=== PATIENT | female | born 1960 | race Caucasian/White ===

== ENCOUNTER 2016-08-21 06:43 | Inpatient (IN) | payer MEDICARE, MEDICAID ==
[~2016-08-21] VITALS: Ht 160 cm; Wt 65.9 kg
[2016-08-21] VITALS (11 sets, daily range): BP systolic 141–170; BP diastolic 67–86; PULSE 90–99; RESP 16–20; TEMP 97–99.1; O2SAT 92–97
[~2016-08-21 06:43] MED LIST: AMLO2.5T PO; CALC500T21 PO; DIVA500 PO; FE T325T PO; FLUP10 PO; FOLI1TAB PO; GABA400C5 PO; GEMF600T PO; GUAI600 PO; HYDR50CA PO; LEVEMIR SQ; LEVO50TA4 PO; LORA-475 PO; METF500 PO; OMEP20TA39 PO; TAB-TAB PO; TRIH5TAB2 PO
[2016-08-21] MEDS ORDERED: SODIUM CHLORIDE 0.9% FLUSH 10 ML FLUSH IVF PRN ×2 (07:00→07:30)
[2016-08-21 07:10] LABS: BASOPHIL % 0.2 % (0.0-2.0); EOSINOPHIL # 0.1 TH/MM3 (0-0.4); EOSINOPHIL % 0.5 % (0.0-4.0); HEMATOCRIT 40.7 % (35.0-46.0); LYMPH % 12.3 % (9.0-44.0); LYMPHOCYTE # 2.7 TH/MM3 (1.0-4.8); MEAN CORPUSCULAR HEMOGLOBIN 29.8 PG (27.0-34.0); MEAN CORPUSCULAR HGB CONC 34.3 % (32.0-36.0); MONO % 14.9 % (0.0-8.0); NEUT % 72.1 % (16.0-70.0); PLATELET COUNT 305 TH/MM3 (150-450); RED BLOOD COUNT 4.68 MIL/MM3 (4.00-5.30); RED CELL DISTRIBUTION WIDTH 14.2 % (11.6-17.2); WHITE BLOOD COUNT 22.2 TH/MM3 (4.0-11.0)
[2016-08-21 07:19] LABS: APTT (PATIENT) 29.3 SEC (24.3-30.1); HEMO FLAGS AUTO DIFF; PROTHROMBIN TIME - PATIENT 11.6 SEC (9.8-11.6)
[2016-08-21] MEDS ORDERED: SODIUM CHLOR 0.9% 1000 ML INJ 1,000 ML IV SCH (07:19)
[2016-08-21] MEDS ORDERED: LEVO100T5 PO (07:26)
[2016-08-21] MEDS ORDERED: ACET325T PO (07:26)
[2016-08-21] MEDS ORDERED: GABA800T PO (07:26)
[2016-08-21] MEDS ORDERED: FERR325T PO (07:26)
[2016-08-21] MEDS ORDERED: OMEP20TA PO (07:26)
[2016-08-21] MEDS ORDERED: LANTINJ SQ (07:26)
[2016-08-21] MEDS ORDERED: AMLO2.5T PO (07:26)
[2016-08-21] MEDS ORDERED: TRIH5TAB2 PO (07:26)
[2016-08-21] MEDS ORDERED: FOLI1TAB4 PO (07:26)
[2016-08-21] MEDS ORDERED: GLUC1000 PO (07:26)
[2016-08-21] MEDS ORDERED: HYDR50CA PO (07:26)
[2016-08-21] MEDS ORDERED: GLIP1TAB49 PO (07:26)
[2016-08-21] MEDS ORDERED: GEMF600T PO (07:26)
[2016-08-21] MEDS ORDERED: DIVA500T3 PO (07:26)
[2016-08-21] MEDS ORDERED: CALC1TAB42 PO (07:26)
[2016-08-21] MEDS ORDERED: MELO-1 PO (07:26)
[2016-08-21] MEDS ORDERED: MULT-135 PO (07:26)
[2016-08-21] MEDS ORDERED: LORA1TAB12 PO (07:26)
[2016-08-21] MEDS ORDERED: FLUP10TA PO (07:26)
[2016-08-21 07:27] LABS: ANION GAP 8 MEQ/L (5-15); AST (GOT) 13 U/L (15-37); BICARBONATE 27.5 MEQ/L (21.0-32.0); BLOOD UREA NITROGEN 12 MG/DL (7-18); CHLORIDE 106 MEQ/L (98-107); GLOMERULAR FILTRATION RATE 51 ML/MIN (>89); POTASSIUM 3.6 MEQ/L (3.5-5.1); SODIUM (NA) 141 MEQ/L (136-145)
--- NOTE | 2016-08-21 07:27 | PD ---
HPI Chief Complaint: Altered Mental Status Time Seen by Provider: 07:11 Travel History International Travel<30 days: No Contact w/Intl Traveler<30days: No Traveled to known affect area: No History of Present Illness HPI 56 y/o female presents with altered mental status since yesterday from an outside facility. This history was obtained from staff who discussed with the EMS team. Patient can tell me her name but is very drowsy and cannot give me significant history. PFSH Past Medical History Narrative Medical Per chart Bipolar Disorder: Yes Diminished Hearing: No (JUAN JOSÉ) Psychiatric: Yes Schizophrenia: Yes Tetanus Vaccination: Unknown Influenza Vaccination: No Past Surgical History Surgical History: Unable to Obtain Social History Narrative Social History Per chart Alcohol Use: No Tobacco Use: Yes Substance Use: Yes Allergies-Medications (Allergen,Severity, Reaction): Coded Allergies: Cogentin (Verified Allergy, Unknown, 08/21/16) Haldol (Verified Allergy, Unknown, 08/21/16) Uncoded Allergies: Butrophenones (Allergy, Unknown, 10/09/15) Reported Meds & Prescriptions Reported Meds & Active Scripts Active Reported Trihexyphenidyl (Trihexyphenidyl HCl) 5 Mg Tab 5 Mg PO BID Multi Vitamin (Multiple Vitamin) 1 Tab Tab 1 Tab PO DAILY Omeprazole 20 Mg Tab 20 Mg PO DAILY Glucophage (Metformin HCl) 1,000 Mg Tab 1,000 Mg PO BIDPC With a meal Meloxicam 15 Mg Tab 15 Mg PO DAILY Lorazepam 1 Mg Tab 1 Mg PO QID Levothyroxine (Levothyroxine Sodium) 100 Mcg Tab 100 Mcg PO DAILY Lantus Solostar Pen Inj (Insulin Glargine) 300 Unit/3 Ml Pen 15 Units SQ DAILY Hydroxyzine Pamoate 50 Mg Cap 50 Mg PO DAILY Glipizide ER (Glipizide) 5 Mg Eleno 5 Mg PO DAILY Take with breakfast or first main meal of the day. Gemfibrozil 600 Mg Tab 600 Mg PO BIDAC Take 30 minutes prior to breakfast and dinner. Gabapentin 800 Mg Tab 800 Mg PO TID Folate (Folic Acid) 1 Mg Tab 1 Mg PO DAILY Fluphenazine (Fluphenazine HCl) 10 Mg Tab 1 Tab PO TID Ferrous Sulfate 325 Mg Tab 325 Mg PO BID Divalproex ER (Divalproex Sodium) 500 Mg Tab 500 Mg PO QID Calcium 500+D (Calcium Carbonate-Cholecalciferol) 500-200 Mg-Unit Tab 1 Tab PO BID Amlodipine (Amlodipine Besylate) 2.5 Mg Tab 2.5 Mg PO DAILY Acetaminophen 325 Mg Tab 325 Mg PO TID Review of Systems ROS Limitations: Altered Mental Status Physical Exam Exam Limitations: Altered Mental Status Narrative GENERAL: Well-nourished, well-developed patient. SKIN: Warm and dry. HEAD: Normocephalic EYES: No injection or drainage. Pupils are 1 cm bilaterally ENT: No nasal drainage noted. NECK: Supple, trachea midline. CARDIOVASCULAR: Regular rate and rhythm RESPIRATORY: Breath sounds equal bilaterally at apices. No accessory muscle use. GASTROINTESTINAL: Abdomen soft, nondistended. EXTREMITIES: No edema. No calf pain NEUROLOGICAL: Drowsy, moves all extremities, awakens to voice but slow to answer questions Data Data Last Documented VS Vital Signs Date Time Temp Pulse Resp B/P Pulse Ox O2 Delivery O2 Flow Rate FiO2 08/21/16 06:53 18 95 Nasal Cannula 2 08/21/16 06:46 99.1 99 145/69 Orders Complete Blood Count With Diff (08/21/16 06:50) Comprehensive Metabolic Panel (08/21/16 06:50) Creatine Kinase (Cpk) (08/21/16 06:50) Prothrombin Time / Inr (Pt) (08/21/16 06:50) Act Partial Throm Time (Ptt) (08/21/16 06:50) Urinalysis - C+S If Indicated (08/21/16 06:50) Ecg Monitoring (08/21/16 06:50) Iv Access Insert/Monitor (08/21/16 06:50) Oximetry (08/21/16 06:50) Sodium Chloride 0.9% Flush (Ns Flush) (08/21/16 07:00) Drug Screen, Random Urine (08/21/16 06:50) Chest, Single Ap (08/21/16 06:50) Ct Brain W/O Iv Contrast(Rout) (08/21/16 ) Sodium Chloride 0.9% Flush (Ns Flush) (08/21/16 07:30) Sodium Chlor 0.9% 1000 Ml Inj (Ns 1000 M (08/21/16 07:19) Electrocardiogram (08/21/16 07:21) Lactic Acid Sepsis Protocol (08/21/16 07:21) Magnesium (Mg) (08/21/16 07:21) Phosphorus (Po4) (08/21/16 07:21) Blood Culture (08/21/16 07:21) Ammonia (08/21/16 07:21) Influenzae A/B Antigen (08/21/16 07:27) Urine Culture (08/21/16 06:50) Cefepime Inj (Maxipime Inj) (08/21/16 07:50) Alcohol (Ethanol) (08/21/16 07:28) Sodium Chlor 0.9% 1000 Ml Inj (Ns 1000 M (08/21/16 08:30) Admit Order (Ed Use Only) (08/21/16 08:37) Labs Laboratory Tests Test 08/21/16 08/21/16 08/21/16 06:50 07:28 07:40 White Blood Count 22.2 TH/MM3 Red Blood Count 4.68 MIL/MM3 Hemoglobin 14.0 GM/DL Hematocrit 40.7 % Mean Corpuscular Volume 87.0 FL Mean Corpuscular Hemoglobin 29.8 PG Mean Corpuscular Hemoglobin 34.3 % Concent Red Cell Distribution Width 14.2 % Platelet Count 305 TH/MM3 Mean Platelet Volume 7.7 FL Neutrophils (%) (Auto) 72.1 % Lymphocytes (%) (Auto) 12.3 % Monocytes (%) (Auto) 14.9 % Eosinophils (%) (Auto) 0.5 % Basophils (%) (Auto) 0.2 % Neutrophils # (Auto) 16.0 TH/MM3 Lymphocytes # (Auto) 2.7 TH/MM3 Monocytes # (Auto) 3.3 TH/MM3 Eosinophils # (Auto) 0.1 TH/MM3 Basophils # (Auto) 0.0 TH/MM3 CBC Comment AUTO DIFF Differential Total Cells 100 Counted Neutrophils % (Manual) 63 % Band Neutrophils % 11 % Lymphocytes % 12 % Monocytes % 12 % Eosinophils % 1 % Neutrophils # (Manual) 16.4 TH/MM3 Differential Comment FINAL DIFF MANUAL Atypical Lymphocytes % Plasma Cells 1 % Platelet Estimate NORMAL Platelet Morphology Comment NORMAL Red Cell Morphology Comment NORMAL Prothrombin Time 11.6 SEC Prothromb Time International 1.0 RATIO Ratio Activated Partial 29.3 SEC Thromboplast Time Urine Color LIGHT-YELLOW Urine Turbidity HAZY Urine pH 6.0 Urine Specific [place] 1.011 Urine Protein 100 mg/dL Urine Glucose (UA) NEG mg/dL Urine Ketones NEG mg/dL Urine Occult Blood MOD Urine Nitrite POS Urine Bilirubin NEG Urine Urobilinogen LESS THAN 2.0 MG/DL Urine Leukocyte Esterase MOD Urine RBC 6 /hpf Urine WBC 111 /hpf Urine WBC Clumps OCC Urine Squamous Epithelial <1 /hpf Cells Urine Bacteria MANY /hpf Microscopic Urinalysis Comment CATH-CULTURE IND Sodium Level 141 MEQ/L Potassium Level 3.6 MEQ/L Chloride Level 106 MEQ/L Carbon Dioxide Level 27.5 MEQ/L Anion Gap 8 MEQ/L Blood Urea Nitrogen 12 MG/DL Creatinine 1.10 MG/DL Estimat Glomerular Filtration 51 ML/MIN Rate Random Glucose 91 MG/DL Calcium Level 8.3 MG/DL Total Bilirubin 0.2 MG/DL Aspartate Amino Transf 13 U/L (AST/SGOT) Alanine Aminotransferase 17 U/L (ALT/SGPT) Alkaline Phosphatase 58 U/L Total Creatine Kinase 80 U/L Total Protein 5.9 GM/DL Albumin 2.4 GM/DL Lactic Acid Level 1.3 mmol/L Phosphorus Level 4.2 MG/DL Magnesium Level 1.8 MG/DL Ammonia 36 MCMOL/L Ethyl Alcohol Level LESS THAN 3 MG/DL Urine Opiates Screen NEG Urine Barbiturates Screen NEG Urine Amphetamines Screen NEG Urine Benzodiazepines Screen NEG Urine Cocaine Screen NEG Urine Cannabinoids Screen NEG MDM Medical Decision Making Medical Screen Exam Complete: Yes Emergency Medical Condition: Yes Medical Record Reviewed: Yes (past history confirmed) Interpretation(s) CBC & BMP Diagram 08/21/16 06:50 Last 24 hours Impressions Chest X-Ray 08/21/16 0650 Signed Impressions: Service Date/Time: Sunday, August 21, 2016 06:56 - CONCLUSION: Normal examination. Minimal pulmonary vascular prominence in the lung bases. Nishant Wilkins MD Head CT 08/21/16 0000 Signed Impressions: Service Date/Time: Sunday, August 21, 2016 07:26 - CONCLUSION: 1. No acute intracranial abnormality is identified. 2. Mucoperiosteal thickening within the ethmoid and right maxillary sinus. Chan Smith MD ua with uti lactate is normal EKG shows NSR, no ST elevation or depression, and no arrhythmias. No significant T-wave inversions. Differential Diagnosis UTI, hypoglycemia, hyponatremia, sepsis, intracranial Narrative Course Will add on CT brain, alcohol level, ammonia, lactate to initial protocol ordered by prior physician after brief notification of EMS report ed workup with sepsis with uti source, patient has no signs of hypotension, renal failure, DKA or elevated lactate that she is drowsy with past medical history of diabetes at 56 years of age so we will give 1 dose of cefepime and give IV fluid hydration and she will need further care in the hospital to make sure she improves Sepsis Criteria SIRS Criteria (2 or more): Heart rate over 90, WBC > 14869, < 4000 or > 10% bands Sepsis Criteria (SIRS+source): Infect source susp/known Criteria Outcome: Meets sepsis criteria Physician Communication Physician Communication Prior physician gave brief EMS report of patient that she had normal Accu-Chek and was more drowsy at the facility she is staying at resident team agrees to admit Diagnosis Primary Impression: Sepsis Qualified Code: A41.9 - Sepsis, due to unspecified organism Additional Impressions: UTI (urinary tract infection) Qualified Code: N39.0 - Urinary tract infection without hematuria, site unspecified Drowsiness Admitting Information Admitting Physician Requests: Admit Sol Overton MD Aug 21, 2016 07:27
--- NOTE | 2016-08-21 07:27 | RADRPT ---
EXAM DATE/TIME: 08/21/2016 06:56 [facility] COMPARISON: CHEST PA & LAT, October 10, 2015, 17:01. INDICATIONS : Short of breath. Change in mental status MEDICAL HISTORY : None. SURGICAL HISTORY : None. ENCOUNTER: Initial ACUITY: 1 day PAIN SCORE: Non-responsive. LOCATION: Bilateral chest FINDINGS: A single view of the chest demonstrates the lungs to be symmetrically aerated without evidence of mas s, infiltrate or effusion. The cardiomediastinal contours are unremarkable. Osseous structures are intact. CONCLUSION: Normal examination. Minimal pulmonary vascular prominence in the lung bases. Nishant Wilkins MD on August 21, 2016 at 7:25 Board Certified Radiologist. This report was verified electronically.
[2016-08-21 07:30] LABS: ALKALINE PHOSPHATASE 58 U/L (45-117); ALT (GPT) 17 U/L (10-53); TOTAL BILIRUBIN ADULT 0.2 MG/DL (0.2-1.0)
[2016-08-21 07:33] LABS: BACTERIA, URINE MANY /hpf; BLOOD, URINE MOD (NEG); CREATINE KINASE 80 U/L (26-192); GLUCOSE,URINE NEG (NEG); KETONE, URINE NEG (NEG); SQUAMOUS EPITHELIAL CELL URINE <1 /hpf (0-5); URINE COLOR LIGHT-YELLOW (YELLW/STRAW)
[2016-08-21 07:38] LABS: COMMENT (UR) CATH-CULTURE IND; CULTURE IF INDICATED CATH CULTURE IND; NITRITE,URINE POS (NEG)
[2016-08-21] MEDS ORDERED: CEFEPIME INJ 2,000 MG in SODIUM CHLORIDE 0.9% INJ 100 ML IV STA (07:50)
--- NOTE | 2016-08-21 07:50 | RADRPT ---
EXAM DATE/TIME: 08/21/2016 07:26 [facility] COMPARISON: No previous studies available for comparison. INDICATIONS : Altered mental status. RADIATION DOSE: 40.30 CTDIvol (mGy) MEDICAL HISTORY : Cardiovascular disease. Diabetes SURGICAL HISTORY : None. ENCOUNTER: Initial ACUITY: 1 day PAIN SCALE: Non-responsive LOCATION: cranial TECHNIQUE: Multiple contiguous axial images were obtained of the head. Using automated exposure control and adj ustment of the mA and/or kV according to patient size, radiation dose was kept as low as reasonably a chievable to obtain optimal diagnostic quality images. FINDINGS: CEREBRUM: The ventricles are normal. No evidence of midline shift, mass lesion, hemorrhage or acute infarction . No extra-axial fluid collections are seen. POSTERIOR FOSSA: The cerebellum and brainstem demonstrate no acute finding. The 4th ventricle is midline. The cerebe llopontine angle is unremarkable. EXTRACRANIAL: There is periosteal thickening within the right maxillary and ethmoid sinus SKULL: The calvaria is intact. No evidence of skull fracture. CONCLUSION: 1. No acute intracranial abnormality is identified. 2. Mucoperiosteal thickening within the ethmoid and right maxillary sinus. Chan Smith MD on August 21, 2016 at 7:46 Board Certified Radiologist. This report was verified electronically.
[2016-08-21 07:59] LABS: AMPHETAMINE, URINE NEG (NEG); BARBITURATES, URINE NEG (NEG); COCAINE, URINE NEG (NEG)
[2016-08-21 08:13] LABS: BANDS 11 % (0-6); EOSINOPHILS 1 % (0-4); NEUTROPHIL # MANUAL DIFF 16.4 TH/MM3 (1.8-7.7); PLASMA CELLS 1 % (0-0); POLYS (SEG NEUTROPHILS) 63 % (16-70); WBC DIFF SAMPLE 100
[2016-08-21 08:17] LABS: PLATELET ESTIMATE SMEAR NORMAL (NORMAL); PLATELET MORPHOLOGY NORMAL (NORMAL); SCAN/DIFF FINAL DIFF MANUAL
[2016-08-21 08:26] LABS: MAGNESIUM 1.8 MG/DL (1.5-2.5)
[2016-08-21] MEDS ORDERED: SODIUM CHLOR 0.9% 1000 ML INJ 1,000 ML IV ONE (08:30)
[2016-08-21] MEDS: SODIUM CHLOR 0.9% 1000 ML INJ 1,000 ML IV SCH ×2 (09:23→17:49)
--- NOTE | 2016-08-21 09:23 | HHI.HP ---
HPI Service Family Medicine Primary Care Physician Solo Livingston M.D. Admission Diagnosis sepsis, uti Diagnoses: International Travel<30 Days: No Contact w/Intl Traveler<30days: No Known Affected Area: No History of Present Illness History limited due to patient being drowsy and uncooperative on awakening 56 year old with PMH of DM, HTN, schizophrenia presenting for altered mental status. Per EMS and record review, patient having altered mental status since yesterday from an outside facility (her [facility]). She cannot articulate the events of night before. She denies any chest pain, SOB, abdominal pain, cough, fever, wheezing. She seems to be having some active delusions (says she thinks she had a baby yesterday). Unable to obtain further details. (Carlos Hope MD R1) Review of Systems ROS Limitations: Altered Mental Status, Uncooperative Respiratory: DENIES: Shortness of breath Cardiovascular: DENIES: Chest pain Gastrointestinal: COMPLAINS OF: Abdominal pain (Carlos Hope MD R1) Past Family Social History Past Medical History Schizophrenia DM Hypothyroidism HTN ? Polysubstance abuse Past Surgical History Unable to obtain Reported Medications Obtained from [facility] record Reported Meds & Active Scripts Active Reported Trihexyphenidyl (Trihexyphenidyl HCl) 5 Mg Tab 5 Mg PO BID Multi Vitamin (Multiple Vitamin) 1 Tab Tab 1 Tab PO DAILY Omeprazole 20 Mg Tab 20 Mg PO DAILY Glucophage (Metformin HCl) 1,000 Mg Tab 1,000 Mg PO BIDPC With a meal Meloxicam 15 Mg Tab 15 Mg PO DAILY Lorazepam 1 Mg Tab 1 Mg PO QID Levothyroxine (Levothyroxine Sodium) 100 Mcg Tab 100 Mcg PO DAILY Lantus Solostar Pen Inj (Insulin Glargine) 300 Unit/3 Ml Pen 15 Units SQ DAILY Hydroxyzine Pamoate 50 Mg Cap 50 Mg PO DAILY Glipizide ER (Glipizide) 5 Mg Eleno 5 Mg PO DAILY Take with breakfast or first main meal of the day. Gemfibrozil 600 Mg Tab 600 Mg PO BIDAC Take 30 minutes prior to breakfast and dinner. Gabapentin 800 Mg Tab 800 Mg PO TID Folate (Folic Acid) 1 Mg Tab 1 Mg PO DAILY Fluphenazine (Fluphenazine HCl) 10 Mg Tab 1 Tab PO TID Ferrous Sulfate 325 Mg Tab 325 Mg PO BID Divalproex ER (Divalproex Sodium) 500 Mg Tab 500 Mg PO QID Calcium 500+D (Calcium Carbonate-Cholecalciferol) 500-200 Mg-Unit Tab 1 Tab PO BID Amlodipine (Amlodipine Besylate) 2.5 Mg Tab 2.5 Mg PO DAILY Acetaminophen 325 Mg Tab 325 Mg PO TID (Carlos Hope MD R1) Allergies: Coded Allergies: Cogentin (Verified Allergy, Unknown, 08/21/16) Haldol (Verified Allergy, Unknown, 08/21/16) Uncoded Allergies: Butrophenones (Allergy, Unknown, 10/09/15) Active Ordered Medications Current Medications Medications (Trade) Dose Ordered Sig/Leonard Route Start Time Stop Time Status Last Admin (NS 1000 ml Inj) 1,000 ml @ 115 mls/hr Q8H42M IV 08/21/16 09:23 (NS Flush) 2 ml UNSCH PRN IV FLUSH 08/21/16 09:30 (NS Flush) 2 ml BID IV FLUSH 08/21/16 21:00 (Senokot) 17.2 mg Q12H PRN PO 08/21/16 09:30 (Lovenox Inj) 40 mg Q24H SQ 08/21/16 10:00 Naloxone HCl 0.4 mg 0.4 mg UNSCH PRN IV 08/21/16 09:30 (Maxipime Inj/NS Inj) 100 ml @ 200 mls/hr Q12H IV 08/21/16 20:00 (Norvasc) 2.5 mg DAILY PO 08/21/16 09:30 08/21/16 11:52 (Depakote Er) 500 mg QID PO 08/21/16 13:00 (Ferrous Sulfate) 325 mg BID PO 08/21/16 09:30 08/21/16 11:51 (Prolixin) 10 mg TID PO 08/21/16 13:00 (Folate) 1 mg DAILY PO 08/21/16 09:30 08/21/16 11:52 (Neurontin) 800 mg TID PO 08/21/16 13:00 (Lopid) 600 mg BIDAC PO 08/21/16 09:30 08/21/16 11:52 (Vistaril) 50 mg DAILY PO 08/21/16 09:30 08/21/16 11:51 (Synthroid) 100 mcg DAILY@06 PO 08/22/16 06:00 (Ativan) 1 mg QID PO 08/21/16 13:00 (Mobic) 15 mg DAILY PO 08/21/16 09:30 (Theragran) 1 tab DAILY PO 08/21/16 09:30 08/21/16 12:01 (Artane) 5 mg BID PO 08/21/16 09:30 (Oscal-D 250-125) 500 mg BID PO 08/21/16 09:45 08/21/16 11:52 (Protonix) 20 mg DAILY PO 08/21/16 09:45 08/21/16 11:53 (D50w (Vial) Inj) 25 ml UNSCH PRN IV PUSH 08/21/16 09:30 (Glucagon Inj) 1 mg UNSCH PRN OTHER 08/21/16 09:30 (Levemir Inj) 5 units Q12HR SQ 08/21/16 09:30 Family History From prior admission: Patient denies a family history of serious mental illness , substance use disorder or suicide. She had previously told me that there was a relation was an alcoholic but denies this now. Social History On chart review, ? history of poly-substance abuse. Refused questioning about drugs/alcohol. Current smoker. (Carlos Hope MD R1) Physical Exam Vital Signs Vital Signs Date Time Temp Pulse Resp B/P Pulse Ox O2 Delivery O2 Flow Rate FiO2 08/21/16 06:53 18 95 Nasal Cannula 2 08/21/16 06:46 99.1 99 18 145/69 92 Physical Exam Exam limited due to uncooperative patient GEN: [id number] disheveled-appearing adult female in no acute distress HEAD: NC/AT EYES: PERRL. No conjunctival injection or drainage. ENT: MMM, OP without erythema or exudate RESP: Breathing comfortably. CTAB, no crackles or wheezes. CV: Refused ABDOMEN: Refused MSK: Atraumatic, no edema by inspection SKIN: Hypopigmented macular rash back of neck. Check for sacral ulcer by RN showed no abnormality. NEURO: Drowsy, awakens to touch. Refused questioning for orientation. PSYCH: Disheveled. Thought process goal directed. Delusions (says she had a baby yesterday). Unable to assess hallucinations, SI/HI. Laboratory Laboratory Tests Test 08/21/16 08/21/16 08/21/16 06:50 07:28 07:40 White Blood Count 22.2 Red Blood Count 4.68 Hemoglobin 14.0 Hematocrit 40.7 Mean Corpuscular Volume 87.0 Mean Corpuscular Hemoglobin 29.8 Mean Corpuscular Hemoglobin 34.3 Concent Red Cell Distribution Width 14.2 Platelet Count 305 Mean Platelet Volume 7.7 Neutrophils (%) (Auto) 72.1 Lymphocytes (%) (Auto) 12.3 Monocytes (%) (Auto) 14.9 Eosinophils (%) (Auto) 0.5 Basophils (%) (Auto) 0.2 Neutrophils # (Auto) 16.0 Lymphocytes # (Auto) 2.7 Monocytes # (Auto) 3.3 Eosinophils # (Auto) 0.1 Basophils # (Auto) 0.0 CBC Comment AUTO DIFF Differential Total Cells 100 Counted Neutrophils % (Manual) 63 Band Neutrophils % 11 Lymphocytes % 12 Monocytes % 12 Eosinophils % 1 Neutrophils # (Manual) 16.4 Differential Comment FINAL DIFF MANUAL Atypical Lymphocytes Plasma Cells 1 Platelet Estimate NORMAL Platelet Morphology Comment NORMAL Red Cell Morphology Comment NORMAL Prothrombin Time 11.6 Prothromb Time International 1.0 Ratio Activated Partial 29.3 Thromboplast Time Urine Color LIGHT-YELLOW Urine Turbidity HAZY Urine pH 6.0 Urine Specific [place] 1.011 Urine Protein 100 Urine Glucose (UA) NEG Urine Ketones NEG Urine Occult Blood MOD Urine Nitrite POS Urine Bilirubin NEG Urine Urobilinogen LESS THAN 2.0 Urine Leukocyte Esterase MOD Urine RBC 6 Urine WBC 111 Urine WBC Clumps OCC Urine Squamous Epithelial <1 Cells Urine Bacteria MANY Microscopic Urinalysis Comment CATH-CULTURE IND Sodium Level 141 Potassium Level 3.6 Chloride Level 106 Carbon Dioxide Level 27.5 Anion Gap 8 Blood Urea Nitrogen 12 Creatinine 1.10 Estimat Glomerular Filtration 51 Rate Random Glucose 91 Calcium Level 8.3 Total Bilirubin 0.2 Aspartate Amino Transf 13 (AST/SGOT) Alanine Aminotransferase 17 (ALT/SGPT) Alkaline Phosphatase 58 Total Creatine Kinase 80 Total Protein 5.9 Albumin 2.4 Lactic Acid Level 1.3 Phosphorus Level 4.2 Magnesium Level 1.8 Ammonia 36 Ethyl Alcohol Level LESS THAN 3 Urine Opiates Screen NEG Urine Barbiturates Screen NEG Urine Amphetamines Screen NEG Urine Benzodiazepines Screen NEG Urine Cocaine Screen NEG Urine Cannabinoids Screen NEG Date/Time Procedure Status Source Growth 08/21/16 07:43 Influenza Types A,B Antigen (EDEL) - Final Complete Nasal Aspirate NEGATIVE FOR FLU A AND B ANTIGEN.... 08/21/16 07:38 Aerobic Blood Culture Received Blood Peripheral Pending 08/21/16 07:38 Anaerobic Blood Culture Received Blood Peripheral Pending 08/21/16 06:50 Urine Culture Received Urine Catheterized Urine Pending (Carlos Hope MD R1) Result Diagram: 08/21/16 0650 08/21/16 0650 Imaging Last Impressions Chest X-Ray 08/21/16 0650 Signed Impressions: Service Date/Time: Sunday, August 21, 2016 06:56 - CONCLUSION: Normal examination. Minimal pulmonary vascular prominence in the lung bases. Nishant Wilkins MD Head CT 08/21/16 0000 Signed Impressions: Service Date/Time: Sunday, August 21, 2016 07:26 - CONCLUSION: 1. No acute intracranial abnormality is identified. 2. Mucoperiosteal thickening within the ethmoid and right maxillary sinus. Chan Smith MD (Carlos Hope MD R1) Septic Shock Reassessment Lungs: Clear Skin: Warm (Carlos Hope MD R1) Assessment and Plan Assessment and Plan 56 yo female with PMH of schizophrenia, DM, HTN, hypothyroidism presenting with: Code Status Unable to obtain (Carlos Hope MD R1) Attending Attestation Patient seen and examined, and discussed with resident team. I agree with assessment and management as documented and discussed with me. The patient has been seen and examined. The chart and all resident notes have been reviewed. I agree that inpatient care is appropriate and that a two midnight stay is expected for the reasons documented in the resident history and physical. I have discussed this with the resident and certify the resident s order for inpatient admission. Constance العلي is a 56yo lady with schizophrenia, HTN, DM II admitted for altered mental status found to have sepsis from UTI. Pt is altered upon my entrance to room. Pt used bed chi for stooling and then threw bed chi to the ground. She is uncooperative. (Lo Higgins MD) Problem List: (1) Sepsis Status: Acute Plan: Based on tachycardia and WBC, patient meets sepsis criteria. No evidence of hypoperfusion or organ dysfunction to suggest severe sepsis. Maintaining BP. Source likely urinary (see UTI below) UA showing many WBC with casts, possibly indicating pyelonephritis - Cefepime 2 g IV Q12H - F/u urine culture - Patient s/p 2 L bolus in ER - NS at 115 cc/hr - Vitals Q4H - Initial lactic acid wnl, repeat per sepsis protocol (2) UTI (urinary tract infection) Status: Acute Plan: UA showing many WBC and some casts. Likely this is pyelonephritis versus lower UTI. - Cefepime as above - F/u Urine Cx (3) Altered mental status Status: Acute Plan: Based on fluctuating level of consciousness, altered mental state is delirium likely due to UTI - Treat UTI as above - Single troponin to r/o cardiac etiology. If positive will trend. - Telemetry for sepsis; if no events and patient stable, D/C after 24 hours - Patient having delusions and history of schizophrenia, but possibly this could be due to not having taken AM psych meds as well as delirium state - Resume psych meds as below, follow clinically (4) Undifferentiated schizophrenia Status: Chronic Plan: Currently with agitation, active delusions. Questionably responding to internal stimuli; difficult to tell whether uncontrolled schizophrenia versus delirium, but more likely delirium - Continue home Fluphenazine, Depakote, Atarax - Continue trihexyphenidyl for parkinsonian symptoms related to antipsychotics - If agitation persists on giving home meds, consider IM antipsychotic x1 (5) Type 2 diabetes mellitus Status: Chronic Plan: Blood glucose wnl - Levemir 5 units BID - Low-dose SSI - Accu-checks AC&HS - Diabetic diet - Continue home gabapentin (assuming for neuropathy but unclear) (6) Essential hypertension Status: Chronic Plan: BP stable - Continue home amlodipine (7) Hypothyroidism Status: Chronic Plan: - Continue home Synthroid - Check TSH in AM (8) FEN Status: Acute Plan: Fluids: NS at 115 cc/hr Elecs: Monitor and replete as needed Nutrition: Diabetic 2200 ADA cons carb (9) No contraindication to deep vein thrombosis (DVT) prophylaxis Status: Acute Plan: Lovenox 40 mg SQ daily dw Dr. Higgins, Dr. Donald (Carlos Hope MD R1) Physician Certification 2 Midnight Certification Type: Admission for Inpatient Services Order for Inpatient Services The services are ordered in accordance with Medicare regulations or non- Medicare payer requirements, as applicable. In the case of services not specified as inpatient-only, they are appropriately provided as inpatient services in accordance with the 2-midnight benchmark. Estimated LOS (days): 2 days is the estimated time the patient will need to remain in the hospital, assuming treatment plan goals are met and no additional complications. Post-Hospital Plan: [facility] (Carlos Hope MD R1) Problem Qualifiers (1) Sepsis: Qualified Code: A41.9 - Sepsis, due to unspecified organism (2) UTI (urinary tract infection): Qualified Code: N39.0 - Urinary tract infection without hematuria, site unspecified (3) Altered mental status: Qualified Code: R41.0 - Delirium (4) Type 2 diabetes mellitus: Qualified Code: E11.8 - Type 2 diabetes mellitus with complication, with long- term current use of insulin (5) Hypothyroidism: Qualified Code: E03.9 - Hypothyroidism, unspecified type Carlos Hope MD R1 Aug 21, 2016 09:23 Lo Higgins MD Aug 21, 2016 21:41
[2016-08-21] MEDS ORDERED: SODIUM CHLORIDE 0.9% FLUSH 10 ML FLUSH IV FLUSH PRN (09:30)
[2016-08-21] MEDS: INSULIN DETEMIR 100 UNITS/ML VIAL SQ SCH ×2 (09:30→21:00)
[2016-08-21] MEDS ORDERED: SENNOSIDES 8.6 MG TAB PO PRN (09:30)
[2016-08-21] MEDS ORDERED: GLUCAGON 1 MG/ML VIAL OTHER PRN (09:30)
[2016-08-21] MEDS ORDERED: DEXTROSE 50% IN WATER 50 ML VIAL(D50) IV PUSH PRN (09:30)
[2016-08-21] MEDS ORDERED: NALOXONE HCL 0.4 MG/ML AMP IV PRN (09:30)
--- NOTE | 2016-08-21 09:36 | EKG ---
Date Performed: 08/21/2016 Time Performed: 06:47:42 PTAGE: 56 years EKG: Sinus rhythm NORMAL ECG NO PREVIOUS TRACING DOCTOR: Hernandez Segovia Interpretating Date/Time 08/21/2016 09:35:27
[2016-08-21] MEDS: ENOXAPARIN SODIUM 40 MG/0.4 ML SYRINGE SQ SCH (10:00)
[2016-08-21] MEDS: INSULIN ASPART SUPPLEMENTAL SCALE SQ SCH ×3 (11:00→21:00)
[2016-08-21] MEDS: FERROUS SULFATE 325 MG (65 MG ELEMENTAL IRON) TAB PO SCH ×2 (11:51→22:42)
[2016-08-21] MEDS: GEMFIBROZIL 600 MG TAB PO SCH ×2 (11:52→16:50)
[2016-08-21] MEDS: FOLIC ACID 1 MG TAB PO SCH (11:52)
[2016-08-21] MEDS: CALCIUM/VITAMIN D 250 MG/125 U TAB PO SCH ×2 (11:52→22:42)
[2016-08-21] MEDS: amLODIPine BESYLATE 5 MG TAB PO SCH (11:52)
[2016-08-21] MEDS: PANTOPRAZOLE SOD 20 MG DELAYED RELEASE TAB PO SCH (11:53)
[2016-08-21] MEDS: MULTIVITAMIN TAB PO SCH (12:01)
[2016-08-21] MEDS: MELOXICAM 15 MG TAB PO SCH (12:15)
[2016-08-21] MEDS: TRIHEXYPHENIDYL HCL 5 MG TAB PO SCH ×2 (12:15→22:42)
[2016-08-21] MEDS: GABAPENTIN 400 MG CAP PO SCH ×2 (13:51→16:50)
[2016-08-21] MEDS: LORazepam 1 MG TAB PO SCH ×3 (13:51→22:41)
[2016-08-21] MEDS: DIVALPROEX SODIUM E.R. 500 MG TAB PO SCH ×3 (14:42→22:42)
[2016-08-21] MEDS ORDERED: CEFEPIME INJ 2,000 MG in SODIUM CHLORIDE 0.9% INJ 100 ML IV SCH (20:00)
[2016-08-21] MEDS: SODIUM CHLORIDE 0.9% FLUSH 10 ML FLUSH IV FLUSH SCH (21:00)
[2016-08-22] VITALS (8 sets, daily range): BP systolic 149–167; BP diastolic 68–104; PULSE 82–97; RESP 16–20; TEMP 97.3–98.9; O2SAT 88–97
[2016-08-22] MEDS ORDERED: CEFEPIME 1000 MG VIAL IM SCH
[2016-08-22] MEDS: CEFEPIME 1000 MG VIAL IM SCH ×3 (00:37→23:22)
[2016-08-22] MEDS: SODIUM CHLOR 0.9% 1000 ML INJ 1,000 ML IV SCH ×3 (02:47→20:11)
[2016-08-22] MEDS: GEMFIBROZIL 600 MG TAB PO SCH ×2 (05:45→16:24)
[2016-08-22] MEDS: LEVOTHYROXINE SODIUM 100 MCG TAB PO SCH (05:45)
[2016-08-22] MEDS: INSULIN ASPART SUPPLEMENTAL SCALE SQ SCH ×4 (05:45→20:51)
[2016-08-22] MEDS: MULTIVITAMIN TAB PO SCH (08:22)
[2016-08-22] MEDS: FERROUS SULFATE 325 MG (65 MG ELEMENTAL IRON) TAB PO SCH ×2 (08:22→20:50)
[2016-08-22] MEDS: TRIHEXYPHENIDYL HCL 5 MG TAB PO SCH ×2 (08:22→20:50)
[2016-08-22] MEDS: LORazepam 1 MG TAB PO SCH ×4 (08:22→20:50)
[2016-08-22] MEDS: FOLIC ACID 1 MG TAB PO SCH (08:23)
[2016-08-22] MEDS: MELOXICAM 15 MG TAB PO SCH (08:23)
[2016-08-22] MEDS: CALCIUM/VITAMIN D 250 MG/125 U TAB PO SCH ×2 (08:23→20:50)
[2016-08-22] MEDS: amLODIPine BESYLATE 5 MG TAB PO SCH (08:23)
[2016-08-22] MEDS: SODIUM CHLORIDE 0.9% FLUSH 10 ML FLUSH IV FLUSH SCH ×2 (08:23→20:51)
[2016-08-22] MEDS: GABAPENTIN 400 MG CAP PO SCH ×3 (08:23→17:32)
[2016-08-22] MEDS: DIVALPROEX SODIUM E.R. 500 MG TAB PO SCH ×4 (08:23→20:50)
[2016-08-22] MEDS: PANTOPRAZOLE SOD 20 MG DELAYED RELEASE TAB PO SCH (08:23)
[2016-08-22] MEDS: INSULIN DETEMIR 100 UNITS/ML VIAL SQ SCH ×2 (08:25→20:50)
[2016-08-22] MEDS: ENOXAPARIN SODIUM 40 MG/0.4 ML SYRINGE SQ SCH (08:29)
--- NOTE | 2016-08-22 10:07 | HHI.FPPN ---
Subjective Remarks Patient seen and examined. ALANA overnight. Per EMR, there was an episode of desaturation to 88% around 0130 this morning. Patient was placed on 4L via NC; however O2 sats currently stable on room air. Patient is more lucid this morning. Reports multiple episodes of nonbloody diarrhea overnight and this morning. Denies abdominal pain, nausea, or vomiting. (Yulisa Loera MD R3) Objective Vitals Vital Signs Date Time Temp Pulse Resp B/P Pulse Ox O2 Delivery O2 Flow Rate FiO2 08/22/16 08:56 Room Air 21 08/22/16 08:15 98.8 92 18 155/77 94 08/22/16 04:00 97.9 97 20 149/68 97 08/22/16 01:42 Nasal Cannula 4.00 08/22/16 01:33 88 08/22/16 00:16 98.5 92 16 158/73 95 08/21/16 20:00 97.7 90 20 157/77 94 08/21/16 20:00 96 08/21/16 16:00 97.0 94 18 152/73 97 08/21/16 13:00 90 16 161/76 97 Room Air 08/21/16 11:37 93 21 08/21/16 10:00 90 16 170/86 97 Nasal Cannula 2 I/O 08/21/16 08/21/16 08/21/16 08/22/16 08/22/16 08/22/16 07:00 15:00 23:00 07:00 15:00 23:00 Intake Total 360 ml 360 ml Balance 360 ml 360 ml Intake Oral 360 ml 360 ml # Voids 2 3 # Bowel Movements 2 2 (Yulisa Loera MD R3) Result Diagram: 08/21/16 0650 08/21/16 0650 Imaging Chest X-Ray 08/21/16 0650 Signed Impressions: Service Date/Time: Sunday, August 21, 2016 06:56 - CONCLUSION: Normal examination. Minimal pulmonary vascular prominence in the lung bases. Nishant Wilkins MD Head CT 08/21/16 0000 Signed Impressions: Service Date/Time: Sunday, August 21, 2016 07:26 - CONCLUSION: 1. No acute intracranial abnormality is identified. 2. Mucoperiosteal thickening within the ethmoid and right maxillary sinus. Chan Smith MD Objective Remarks GEN: WDWN disheveled-appearing adult female in no acute distress HEAD: NC/AT EYES: No conjunctival injection or drainage. ENT: MMM, OP without erythema or exudate RESP: Breathing comfortably. CTAB, no crackles or wheezes. CV: RRR. No murmurs. ABDOMEN: Soft, non-distended, nontender. Active bowel sounds. Negative Olivas's sign MSK: MAEW. No edema. SKIN: Clear. No lesions or rashes noted. NEURO: Awake and alert. No focal deficits. PSYCH: Disheveled. Thought process goal directed. No evidence of delusions or hallucinations this morning. Angry because she thinks they switched her medications around at the [facility]. (Yulisa Loera MD R3) A/P Assessment and Plan 56 yo female with PMH of schizophrenia, DM, HTN, hypothyroidism presenting with: Discharge Planning Discharge pending clinical improvement and result of urine culture (Yulisa Loera MD R3) Attending Attestation Patient seen, examined and discussed with resident team. I agree with assessment and management as documented and discussed with me. Pt complains of diarrhea as above. No abdominal pain. On exam, mild "discomfort' bilateral CVA. No obvious pain. Negative olivas's sign. Await UCx. Additional diagnosis: Diarrhea: Unclear etiology. Check stool studies. (Lo Higgins MD) Problem List: (1) Sepsis Status: Acute Plan: Based on tachycardia and WBC, patient met sepsis criteria on admission. Lactic acid 1.3 Source likely urinary (see UTI below) UA showing many WBC with casts, possibly indicating pyelonephritis. - Continue Cefepime 2 g IM Q12H - F/u urine and blood cultures. Of note, one culture came back positive for GNR. - Patient s/p 2 L bolus in ER. Continue NS at 115 cc/hr (2) UTI (urinary tract infection) Status: Acute Plan: UA showing many WBC and some casts. Likely this is pyelonephritis versus lower UTI. - Cefepime as above - F/u Urine Cx - Consider renal u/s if renal function worsens (3) Altered mental status Status: Acute Plan: Based on fluctuating level of consciousness, altered mental state is delirium likely due to UTI. Mental status improved compared to admission. - Treat UTI as above - UDS negative. Ethyl alcohol unremarkable. - Ammonia slightly elevated. Will repeat in AM. - Single troponin negative - Discontinue telemetry given no events overnight - Patient has history of schizophrenia. Resume psych meds as below, follow clinically. If psychosis worsen, consider psych consult. (4) Undifferentiated schizophrenia Status: Chronic Plan: Had agitation and active delusions on admission. Questionably responding to internal stimuli; difficult to tell whether uncontrolled schizophrenia versus delirium, but more likely delirium. Mental status improved. - Continue home Fluphenazine, Depakote, Atarax - Continue trihexyphenidyl for parkinsonian symptoms related to antipsychotics - Consider psych consult if symptoms worsen - Depakote level pending. (5) Type 2 diabetes mellitus Status: Chronic Plan: Blood glucose wnl - Levemir 5 units BID - Low-dose SSI - Accu-checks AC&HS - Diabetic diet - Continue home gabapentin (6) Essential hypertension Status: Chronic Plan: BP stable - Continue home amlodipine (7) Hypothyroidism Status: Chronic Plan: - Continue home Synthroid - Check TSH pending (8) FEN Status: Acute Plan: Fluids: NS at 115 cc/hr Elecs: Monitor and replete as needed Nutrition: Diabetic 2200 ADA cons carb (9) No contraindication to deep vein thrombosis (DVT) prophylaxis Status: Acute Plan: Lovenox 40 mg SQ daily s/d/w Dr. Higgins and Dr. Hope (Yulisa Loera MD R3) Problem Qualifiers (1) Sepsis: Qualified Code: A41.9 - Sepsis, due to unspecified organism (2) UTI (urinary tract infection): Qualified Code: N39.0 - Urinary tract infection without hematuria, site unspecified (3) Altered mental status: Qualified Code: R41.0 - Delirium (4) Type 2 diabetes mellitus: Qualified Code: E11.8 - Type 2 diabetes mellitus with complication, with long- term current use of insulin (5) Hypothyroidism: Qualified Code: E03.9 - Hypothyroidism, unspecified type Yulisa Loera MD R3 Aug 22, 2016 10:07 Lo Higgins MD Aug 22, 2016 13:35
[2016-08-22 11:01] LABS: AUTOMATED NEUTROPHIL # 13.3 TH/MM3 (1.8-7.7); BASOPHIL # 0.1 TH/MM3 (0-0.2); BASOPHIL % 0.7 % (0.0-2.0); EOSINOPHIL # 0.1 TH/MM3 (0-0.4); EOSINOPHIL % 0.8 % (0.0-4.0); HEMATOCRIT 36.6 % (35.0-46.0); HEMO FLAGS DIFF FINAL; LYMPH % 15.9 % (9.0-44.0); LYMPHOCYTE # 2.8 TH/MM3 (1.0-4.8); MEAN CELL VOLUME 87.2 FL (80.0-100.0); MEAN CORPUSCULAR HEMOGLOBIN 29.8 PG (27.0-34.0); MEAN CORPUSCULAR HGB CONC 34.1 % (32.0-36.0); MONO % 7.9 % (0.0-8.0); NEUT % 74.7 % (16.0-70.0); PLATELET COUNT 286 TH/MM3 (150-450); RED BLOOD COUNT 4.19 MIL/MM3 (4.00-5.30); WHITE BLOOD COUNT 17.8 TH/MM3 (4.0-11.0)
[2016-08-22 11:39] LABS: BICARBONATE 26.2 MEQ/L (21.0-32.0); MAGNESIUM 1.9 MG/DL (1.5-2.5); POTASSIUM 3.5 MEQ/L (3.5-5.1)
--- NOTE | 2016-08-22 14:22 | EKG ---
Date Performed: 08/21/2016 Time Performed: 08:37:41 PTAGE: 56 years EKG: Sinus rhythm Since previous tracing, no significant change noted NORMAL ECG PREVIOUS TRACING : 08/21/2016 06.47.42 DOCTOR: Asif Avalos Interpretating Date/Time 08/22/2016 14:22:15
[2016-08-23] VITALS (9 sets, daily range): BP systolic 130–181; BP diastolic 74–94; PULSE 72–93; RESP 16–22; TEMP 97.4–98.7; O2SAT 94–98
[2016-08-23] MEDS ORDERED: diphenhydrAMINE HCL 50 MG CAP PO PRN (01:30)
[2016-08-23] MEDS: SODIUM CHLOR 0.9% 1000 ML INJ 1,000 ML IV SCH ×3 (04:46→22:17)
[2016-08-23] MEDS: GEMFIBROZIL 600 MG TAB PO SCH ×2 (05:25→20:12)
[2016-08-23] MEDS: LEVOTHYROXINE SODIUM 100 MCG TAB PO SCH (05:25)
[2016-08-23] MEDS: INSULIN ASPART SUPPLEMENTAL SCALE SQ SCH ×6 (06:06→21:00)
[2016-08-23 07:15] LABS: AUTOMATED NEUTROPHIL # 7.5 TH/MM3 (1.8-7.7); BASOPHIL % 0.3 % (0.0-2.0); EOSINOPHIL # 0.3 TH/MM3 (0-0.4); EOSINOPHIL % 2.9 % (0.0-4.0); HEMATOCRIT 36.4 % (35.0-46.0); HEMO FLAGS DIFF FINAL; LYMPH % 24.3 % (9.0-44.0); LYMPHOCYTE # 2.8 TH/MM3 (1.0-4.8); MEAN CELL VOLUME 85.6 FL (80.0-100.0); MEAN CORPUSCULAR HEMOGLOBIN 30.5 PG (27.0-34.0); MEAN CORPUSCULAR HGB CONC 35.7 % (32.0-36.0); MONO % 8.3 % (0.0-8.0); NEUT % 64.2 % (16.0-70.0); PLATELET COUNT 313 TH/MM3 (150-450); RED BLOOD COUNT 4.25 MIL/MM3 (4.00-5.30); RED CELL DISTRIBUTION WIDTH 13.7 % (11.6-17.2); WHITE BLOOD COUNT 11.6 TH/MM3 (4.0-11.0)
[2016-08-23 07:37] LABS: BICARBONATE 31.6 MEQ/L (21.0-32.0); POTASSIUM 3.7 MEQ/L (3.5-5.1)
[2016-08-23] MEDS: SODIUM CHLORIDE 0.9% FLUSH 10 ML FLUSH IV FLUSH SCH ×2 (09:00→21:00)
--- NOTE | 2016-08-23 10:32 | HHI.FPPN ---
Subjective Remarks Sitting up in chair, anxious, tearful. Per nursing report, security was called because patient was wandering off the floor. She is wanting to leave against medical advise. She refuses a physical examination today. Does not answer my questions and keeps stating she wants to leave. Objective Vitals Vital Signs Date Time Temp Pulse Resp B/P Pulse Ox O2 Delivery O2 Flow Rate FiO2 08/23/16 05:56 130/82 08/23/16 05:09 93 22 172/93 94 08/23/16 00:00 98.7 84 20 151/74 96 08/22/16 23:20 Room Air 08/22/16 20:00 98.9 82 18 167/79 95 08/22/16 16:14 98.4 87 18 159/104 96 08/22/16 12:14 94 21 08/22/16 12:02 97.3 87 20 156/80 95 I/O 08/22/16 08/22/16 08/22/16 08/23/16 08/23/16 08/23/16 07:00 15:00 23:00 07:00 15:00 23:00 Intake Total 360 ml 600 ml 360 ml Balance 360 ml 600 ml 360 ml Intake Oral 360 ml 600 ml 360 ml # Voids 3 2 1 # Bowel Movements 2 1 Result Diagram: 08/23/1640 08/23/1640 Objective Remarks GEN: WDWN disheveled-appearing adult female, anxious and tearful, wants to leave No physical exam performed per the patient's refusal. A/P Assessment and Plan 56 yo female with PMH of schizophrenia, DM, HTN, hypothyroidism presenting with AMS, urinary tract infection and e.coli bacteremia. Discharge Planning Discharge pending negative blood culture, improvement in clinical status, no leukocytosis or fevers for 24 hours at least Problem List: (1) E coli bacteremia Status: Acute Plan: Presented with urinary tract infection and altered mental status, found to have urine culture positive for e.coli and e.coli bacteremia. White count improving, was 22.2 at admission and now 11.6. No fevers. Lactic acid was 1.3. - Receiving Cefepime IM (was refusing IV). - Continue IVF at maintenance. - Monitor for fevers and leukocytosis. - Consult infectious disease. (2) UTI (urinary tract infection) Status: Acute Plan: UA showing many WBC and some casts. Likely this is pyelonephritis versus lower UTI. Also with e.coli bacteremia, likely from urinary tract. Creatinine improving and now normal. - Cefepime IM, switch to IV when she is amenable. - F/u sensitivities of culture, tailor antibiotic coverage accordingly. (3) Hyperammonemia Status: Acute Plan: Ammonia is 64, 36 on admission. Difficult to examine patient but currently with no apparent decreasing consciousness. She is up in a chair and walking around without difficulty. Likely from hypovolemia, infectious process, poor nutrition. Possibly from alcohol use. Valproic acid can also cause elevated ammonia. - Monitor for lethargy/decreased consciousness. - Consider lactulose if continuing to rise or change in consciousness. (4) Undifferentiated schizophrenia Status: Chronic Plan: Had agitation and active delusions on admission. Questionably responding to internal stimuli; difficult to tell whether uncontrolled schizophrenia versus acute delirium. Currently she is attempting to leave the floor and security had to be called. Had extensive discussion with the patient, and she is not able to tell me what we are treating her for in the hospital, why treatment is important, or what will happen if she does not get treated for her condition and chooses to leave. - I will Del Rosario Act the patient as it is my opinion that she lacks insight into the consequences of refusing medical care and is not able to care for herself outside of the hospital. - Consult psychiatry. - Continue home Fluphenazine, Depakote, Atarax - Continue trihexyphenidyl for parkinsonian symptoms related to antipsychotics - Depakote level slightly low. (5) Type 2 diabetes mellitus Status: Chronic Plan: Blood glucose wnl since noon yesterday. - Levemir 5 units BID - Low-dose SSI - Accu-checks AC&HS - Diabetic diet - Continue home gabapentin (6) Essential hypertension Status: Chronic Plan: BP stable - Continue home amlodipine (7) Hypothyroidism Status: Chronic Plan: - Continue home Synthroid - Check TSH pending (8) FEN Status: Acute Plan: Fluids: NS at 115 cc/hr Elecs: Monitor and replete as needed Nutrition: Diabetic 2200 ADA cons carb (9) No contraindication to deep vein thrombosis (DVT) prophylaxis Status: Acute Plan: Lovenox 40 mg SQ daily d/w Dr. Higgins Problem Qualifiers (1) UTI (urinary tract infection): Qualified Code: N39.0 - Urinary tract infection without hematuria, site unspecified (2) Type 2 diabetes mellitus: Qualified Code: E11.8 - Type 2 diabetes mellitus with complication, with long- term current use of insulin (3) Hypothyroidism: Qualified Code: E03.9 - Hypothyroidism, unspecified type Claudio Donald MD R2 Aug 23, 2016 10:32
[2016-08-23] MEDS: MELOXICAM 15 MG TAB PO SCH (11:13)
[2016-08-23] MEDS: TRIHEXYPHENIDYL HCL 5 MG TAB PO SCH ×2 (11:14→21:17)
[2016-08-23] MEDS: DIVALPROEX SODIUM E.R. 500 MG TAB PO SCH ×4 (11:14→21:00)
[2016-08-23] MEDS: CALCIUM/VITAMIN D 250 MG/125 U TAB PO SCH ×2 (11:14→21:18)
[2016-08-23] MEDS: amLODIPine BESYLATE 5 MG TAB PO SCH (11:15)
[2016-08-23] MEDS: PANTOPRAZOLE SOD 20 MG DELAYED RELEASE TAB PO SCH (11:15)
[2016-08-23] MEDS: FERROUS SULFATE 325 MG (65 MG ELEMENTAL IRON) TAB PO SCH ×2 (11:15→21:17)
[2016-08-23] MEDS: GABAPENTIN 400 MG CAP PO SCH ×3 (11:15→20:12)
[2016-08-23] MEDS: LORazepam 1 MG TAB PO SCH ×4 (11:15→20:11)
[2016-08-23] MEDS: FOLIC ACID 1 MG TAB PO SCH (11:15)
[2016-08-23] MEDS: MULTIVITAMIN TAB PO SCH (11:15)
[2016-08-23] MEDS: INSULIN DETEMIR 100 UNITS/ML VIAL SQ SCH ×2 (11:16→21:18)
[2016-08-23] MEDS: ENOXAPARIN SODIUM 40 MG/0.4 ML SYRINGE SQ SCH (11:21)
[2016-08-23] MEDS: CEFEPIME 1000 MG VIAL IM SCH (11:23)
[2016-08-23] MEDS: LACTULOSE SYRUP 20 GM/30 ML CUP PO SCH (11:45)
--- NOTE | 2016-08-23 19:27 | MB ---
cc: SIMRAN HARTMAN MD DATE OF CONSULTATION 08/23/[address] Donald REASON FOR CONSULTATION E-coli UTI and E-coli bacteremia. HISTORY OF PRESENT ILLNESS A 56-year white female who was admitted to the hospital when she presented from an assisted living facility with altered mental status. The patient was unable to give medical history when she presented. Temperature was 99.1 degrees and a white blood cell count was elevated at 22.2 and she also exhibited signs of acute renal failure. The workup included urinalysis which revealed elevated white cell count and urine culture was obtained and it came back with E-coli. Blood cultures were also obtained and one of the bottles came back with E-coli. She was started on antibiotics. The temperatures were normal except for one axillary measured temperature of 98.7 earlier today. The patient was noted to be very drowsy when she presented. Currently she is awake and alert but her speech is somewhat abnormal. The character of her speech is more like a drunken speech. She denies headache. Chest x-ray was unremarkable. Her white blood cell count has steadily improved. She has no other significant complaints. She is concerned that her abdomen is distended. She reports that she had some sort of abdominal surgery a couple of years ago and showed me a horizontal surgical scar at the lower abdomen above the pubic region. PAST MEDICAL HISTORY Past medical history of diabetes mellitus, hypertension, schizophrenia, hypothyroidism, history of abdominal surgery. ALLERGIES HALDOL, COGENTIN, BUTYROPHENONE. MEDICATIONS 1. Synthroid. 2. lactulose. 3. cefepime. 4. Depakote. 5. Prolixin. 6. Neurontin. 7. Ativan. 8. Insulin. 9. Lovenox. 10. Os-Manpreet D. 11. Protonix. 12. Norvasc. 13. Ferrous sulfate. 14. Folic acid. 15. Lopid. 16. Vistaril. 17. Mobic. 18. Theragran. 19. Artane. 20. Levemir. SOCIAL HISTORY The patient smokes a pack of cigarettes a day. No alcohol use. No illicit drugs. The patient is a resident of an assisted living facility. FAMILY HISTORY Noncontributory. REVIEW OF SYSTEMS GENERAL: No fevers or chills. HEAD, EARS, EYES, NOSE AND THROAT: No visual difficulties. No blurring or diplopia. No difficulty swallowing. No soreness of the throat. NECK: No pain or swelling. CARDIOVASCULAR: Denies chest pain or palpitation. RESPIRATORY: Denies cough or shortness of breath. ABDOMEN: Denies nausea, vomiting, abdominal pain or diarrhea. ABDOMEN: Swelling. GENITOURINARY: No urgency, frequency or dysuria. ENDOCRINE: No polyuria, polydipsia. MUSCULOSKELETAL: No muscle aches or pains. INTEGUMENTARY: No skin rash or itching. NEUROLOGIC: No problems with coordination or tremors. PHYSICAL EXAMINATION GENERAL: This is a slender, well-developed female who is in no acute distress. VITAL SIGNS: Temperature of 98 degrees, BP 169/79, respirations 18, heart rate 92. HEENT: Head atraumatic. Extraocular movements are grossly intact. Oropharynx no visible lesions. NECK: Supple. No adenopathy. LUNGS: Decreased breath sounds throughout. HEART: Regular S1-S2 without murmurs. ABDOMEN: Abdomen is protuberant. Firm at the area of swelling at the midabdomen which is located at the epigastric area. This appears to encompass most of the abdomen below the epigastrium. It is nontender. RECTAL: Not performed. EXTREMITIES: No clubbing or cyanosis or edema. SKIN: No rash. NEURO: Nonfocal. PSYCH: The patient is calm and cooperative. She has however disjointed thoughts. LABORATORY DATA WBC 11.6, platelets 313, hemoglobin 13.0, 64% neutrophils, 24% lymphocytes, creatinine 0.73, BUN 8, sodium 140, estimated GFR 82. IMPRESSION 1. E-coli sepsis. 2. E-coli UTI. 3. Questionable abdominal mass. 4. Leukocytosis secondary to infection, improving. RECOMMENDATIONS 1. Change the cefepime to ceftriaxone. 2. Consider ultrasound evaluation of the abdomen to investigate the fullness which may be a recurrence of prior tumor. 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 3. Follow white blood cell count. The ultrasound will also help evaluate whether she has hydronephrosis. Thank you for this consultation. The patient's progress will be monitored and further recommendations will be given on followup. It is possible that she may have some obstruction of the urine flow by a mass in the abdomen. Simran Hartman MD FD/RAHEEL /4:06 PM /7:06 PM [email or web address]
[2016-08-23] MEDS: cefTRIAXone INJ 2,000 MG in SODIUM CHLORIDE 0.9% INJ 100 ML IV SCH (20:14)
[2016-08-24] VITALS (7 sets, daily range): BP systolic 155–170; BP diastolic 74–89; PULSE 79–88; RESP 16–19; TEMP 97.9–98.3; O2SAT 92–97
[2016-08-24] MEDS: LEVOTHYROXINE SODIUM 100 MCG TAB PO SCH (05:24)
[2016-08-24] MEDS: GEMFIBROZIL 600 MG TAB PO SCH ×2 (05:24→16:00)
[2016-08-24] MEDS: INSULIN ASPART SUPPLEMENTAL SCALE SQ SCH ×4 (05:25→21:52)
[2016-08-24] MEDS: SODIUM CHLOR 0.9% 1000 ML INJ 1,000 ML IV SCH (05:25)
[2016-08-24 07:21] LABS: HEMATOCRIT 40.4 % (35.0-46.0); MEAN CELL VOLUME 86.3 FL (80.0-100.0); MEAN CORPUSCULAR HEMOGLOBIN 30.1 PG (27.0-34.0); MEAN CORPUSCULAR HGB CONC 34.9 % (32.0-36.0); PLATELET COUNT 345 TH/MM3 (150-450); RED BLOOD COUNT 4.68 MIL/MM3 (4.00-5.30); RED CELL DISTRIBUTION WIDTH 13.7 % (11.6-17.2); REVIEW FLAG FINAL; WHITE BLOOD COUNT 8.5 TH/MM3 (4.0-11.0)
[2016-08-24 07:59] LABS: ANION GAP 7 MEQ/L (5-15); AST (GOT) 27 U/L (15-37); BICARBONATE 32.2 MEQ/L (21.0-32.0); BLOOD UREA NITROGEN 12 MG/DL (7-18); CHLORIDE 102 MEQ/L (98-107); GLOMERULAR FILTRATION RATE 79 ML/MIN (>89); POTASSIUM 3.8 MEQ/L (3.5-5.1); SODIUM (NA) 141 MEQ/L (136-145)
[2016-08-24 08:02] LABS: ALKALINE PHOSPHATASE 60 U/L (45-117); ALT (GPT) 21 U/L (10-53); TOTAL BILIRUBIN ADULT 0.2 MG/DL (0.2-1.0)
[2016-08-24] MEDS: LACTULOSE SYRUP 20 GM/30 ML CUP PO SCH (09:00)
[2016-08-24] MEDS: SODIUM CHLORIDE 0.9% FLUSH 10 ML FLUSH IV FLUSH SCH ×2 (09:00→22:15)
[2016-08-24] MEDS: ENOXAPARIN SODIUM 40 MG/0.4 ML SYRINGE SQ SCH (10:00)
[2016-08-24] MEDS: CALCIUM/VITAMIN D 250 MG/125 U TAB PO SCH ×2 (10:14→21:51)
[2016-08-24] MEDS: INSULIN DETEMIR 100 UNITS/ML VIAL SQ SCH ×2 (10:14→21:52)
[2016-08-24] MEDS: MELOXICAM 15 MG TAB PO SCH (10:15)
[2016-08-24] MEDS: LORazepam 1 MG TAB PO SCH ×4 (10:15→21:51)
[2016-08-24] MEDS: PANTOPRAZOLE SOD 20 MG DELAYED RELEASE TAB PO SCH (10:15)
[2016-08-24] MEDS: GABAPENTIN 400 MG CAP PO SCH ×3 (10:15→17:56)
[2016-08-24] MEDS: FERROUS SULFATE 325 MG (65 MG ELEMENTAL IRON) TAB PO SCH ×2 (10:15→21:51)
[2016-08-24] MEDS: DIVALPROEX SODIUM E.R. 500 MG TAB PO SCH ×4 (10:15→21:50)
[2016-08-24] MEDS: MULTIVITAMIN TAB PO SCH (10:16)
[2016-08-24] MEDS: amLODIPine BESYLATE 5 MG TAB PO SCH (10:16)
[2016-08-24] MEDS: FOLIC ACID 1 MG TAB PO SCH (10:16)
[2016-08-24] MEDS: TRIHEXYPHENIDYL HCL 5 MG TAB PO SCH (10:16)
--- NOTE | 2016-08-24 11:29 | PD.CONS ---
Provisional Diagnosis Admission Date Aug 21, 2016 at 08:39 [place] I. Schizophrenia paranoid type [place] II. Deferred [place] III. DM, HTN, UTI [place] IV. Long history of chronic mental illness [place] V. 45 History of Present Illness Service Psychiatry Consult Requested By Primary Care Physician Solo Livingston M.D. HPI The patient is a 56-year-old woman, domiciled in a [facility], single, unemployed, supported by [facility], with extensive psychiatric history of paranoid schizophrenia, multiple psychiatric hospitalizations, receiving outpatient care by visiting psychiatrist/nurse practitioner Jamin Figueroa in her [facility], she has been stable on Depakote 500 mg twice a day, fluphenazine and milligram twice a day, Artane 5 mg twice a day , her last psychiatric hospitalization was here at [place], October 2015, she was under the care of Dr. Rendon, documentation was reviewed, she doesn't have any previous suicidal attempts, medical history of diabetes mellitus or hypertension, who was brought to the hospital due to altered mental status and agitation, she was found to have significant UTI and sepsis with Escherichia coli. Patient was consulted to psychiatry due to disorganized behavior, paranoia and agitation. On psychiatric evaluation today patient is found in her bed, she is irritable, superficially cooperative. When I presented myself as a psychiatrist, she became verbally hostile stating that I am trying to poison her with the psychiatric medication she is taking. She says that the reason she is here in the hospital is because her psychiatrist in [facility] has been prescribing her with medication that are poisoning her body. Patient says that she has been trying to leave this place, "because I see people coming and going, they are never the same people and I don't trust them". Patient reports angry mood, increased anxiety, poor sleep, but denies depressive symptoms, denies anhedonia, denies hopelessness, denies helplessness, denies suicidal and homicidal ideation. Patient denies visual and auditory hallucinations at this moment. Patient is fully oriented 3, without any attention deficit, without fluctuation of consciousness and not gross cognitive impairment observed. However patient is to oppositional and resistant to the evaluation to perform a full cognitive evaluation. At times during the evaluation patient become disorganized making not much sense, but she is redirectable. Collateral information from her psychiatrist nurse practitioner, Jamin Figueroa, was obtained, he says that the patient was at baseline last time he saw her last week. Patient is usually kind of disorganized and tangential, but never paranoid. She is usually compliant to current psychotropic regimen, in which she has been for years, with good response and not significant side effects. He recommends a psychiatric hospitalization for adjustment of psychotropics and stabilization paranoia. Patient denies the use of illicit drugs and alcohol. Review of Systems Constitutional: DENIES: Diaphoretic episodes, Fatigue, Fever, Weight gain, Weight loss, Chills, Dizziness, Change in appetite, Night Sweats Endocrine: DENIES: Abnorml menstrual pattern, Heat/cold intolerance, Polydipsia , Polyuria, Polyphagia Eyes: DENIES: Blurred vision, Diplopia, Eye inflammation, Eye pain, Vision loss , Photosensitivity, Double Vision Ears, nose, mouth, throat: DENIES: Tinnitus, Hearing loss, Vertigo, Nasal discharge, Oral lesions, Throat pain, Hoarseness, Ear Pain, Running Nose, Epistaxis, Sinus Pain, Toothache, Odynophagia Respiratory: DENIES: Apneas, Cough, Snoring, Wheezing, Hemoptysis, Sputum production, Shortness of breath Cardiovascular: DENIES: Chest pain, Palpitations, Syncope, Dyspnea on Exertion , PND, Lower Extremity Edema, Orthopnea, Claudication Gastrointestinal: COMPLAINS OF: Abdominal pain, DENIES: Black stools, Bloody stools, Constipation, Diarrhea, Nausea, Vomiting, Difficulty Swallowing, Anorexia Musculoskeletal: DENIES: Joint pain, Muscle aches, Stiffness, Joint Swelling, Back pain, Neck pain Integumentary: DENIES: Abnormal pigmentation, Pruritus, Rash, Nail changes, Breast masses, Breast skin changes, Nipple discharge Hematologic/lymphatic: DENIES: Bruising, Lymphadenopathy Immunologic/allergic: DENIES: Eczema, Urticaria Neurologic: DENIES: Abnormal gait, Headache, Localized weakness, Paresthesias, Seizures, Speech Problems, Tremor, Poor Balance Psychiatric: COMPLAINS OF: Agitation, Delusions (paranoid delusions), DENIES: Anxiety, Confusion, Mood changes, Depression, Hallucinations, Suicidal Ideation , Homicidal Ideation Past Family Social History Coded Allergies: Cogentin (Verified Allergy, Unknown, 08/21/16) Haldol (Verified Allergy, Unknown, 08/21/16) Uncoded Allergies: Butrophenones (Allergy, Unknown, 10/09/15) Reported Medications Trihexyphenidyl 5 Mg Tab5 Mg PO BID #60 TAB Ref 0 08/21/16 Multiple Vitamin (Multi Vitamin)1 Tab Tab1 Tab PO DAILY 08/21/16 Omeprazole 20 Mg Tab20 Mg PO DAILY #30 TAB Ref 0 08/21/16 Metformin (Glucophage)1,000 Mg Tab1,000 Mg PO BIDPC #60 TAB Ref 0 With a meal 08/21/16 Meloxicam 15 Mg Tab15 Mg PO DAILY #30 TAB Ref 0 08/21/16 Lorazepam 1 Mg Tab1 Mg PO QID Ref 0 08/21/16 Levothyroxine 100 Mcg [id number] Mcg PO DAILY #30 TAB Ref 0 08/21/16 Insulin Glargine Inj (Lantus Solostar Pen Inj)300 Unit/3 Ml Pen15 Units SQ DAILY Ref 0 08/21/16 Hydroxyzine Pamoate 50 Mg Cap50 Mg PO DAILY Ref 0 08/21/16 Glipizide ER 5 Mg Taber5 Mg PO DAILY #30 TAB Ref 0 Take with breakfast or first main meal of the day. 08/21/16 Gemfibrozil 600 Mg [id number] Mg PO BIDAC #60 TAB Ref 0 Take 30 minutes prior to breakfast and dinner. 08/21/16 Gabapentin 800 Mg [id number] Mg PO TID #90 TAB Ref 0 08/21/16 Folic Acid (Folate)1 Mg Tab1 Mg PO DAILY Ref 0 08/21/16 Fluphenazine 10 Mg Tab1 Tab PO TID 08/21/16 Ferrous Sulfate 325 Mg Yoq128 Mg PO BID #30 TAB Ref 0 08/21/16 Divalproex ER 500 Mg Rae305 Mg PO QID #30 TAB Ref 0 08/21/16 Calcium Carbonate-Cholecalciferol (Calcium 500+D)500-200 Mg-Unit Tab1 Tab PO BID 08/21/16 Amlodipine 2.5 Mg Tab2.5 Mg PO DAILY #30 TAB Ref 0 08/21/16 Acetaminophen 325 Mg Eyq678 Mg PO TID Ref 0 08/21/16 Discontinued Reported Medications Hydroxyzine Pamoate 50 Mg Cap50 Mg PO BID 08/06/15 Trihexyphenidyl Hcl (Artane)5 Mg Tab5 Mg PO BID 08/06/15 Multiple Vitamin (Multivitamin)1 Tab Tab1 Tab PO DAILY 08/06/15 Omeprazole (Hm Omeprazole)20 Mg Tab20 Mg PO DAILY 08/06/15 Metformin 500 mg (Glucophage 500 mg)500 Mg Tab1,000 Mg PO BIDPC 08/06/15 Levothyroxine Sodium (Levothyroxine 50 mcg)50 Mcg Tab50 Mcg PO DAILY 08/06/15 Gemfibrozil 600 Mg Bjg356 Mg PO BID 08/06/15 Gabapentin 400 Mg Pdq335 Mg PO TID 08/06/15 Folic Acid (Folate)1 Mg Tab1 Mg PO DAILY 08/06/15 Ferrous Sulfate (Fe Tabs)325 Mg Qig754 Mg PO BID 08/06/15 Calcium Carbonate-Vitamin D (Calcium 500+D)500 + Tab1 Tab PO BID 08/06/15 Amlodipine Besylate 2.5 mg 2.5 Mg Tab2.5 Mg PO DAILY 08/06/15 Discontinued Scripts Lorazepam (Ativan)2 Mg Tab1 Mg PO Q6HR PRN (MODERATE TO SEVERE ANXIETY) #30 TAB Ref 0 Prov:Shawn Rendon MD 10/21/15 Insulin Detemir (Levemir) Inj5 Units SQ HS 30 Days Ref 0 Prov:Shawn Rendon MD 10/21/15 Insulin Detemir (Levemir) Inj4 Units SQ DAILYAC 30 Days Ref 0 Prov:Shawn Rendon MD 10/21/15 Guaifenesin (Mucinex 600 Mg Tab)600 Mg [id number] Mg PO BID 30 Days Ref 0 Prov:Shawn Rendon MD 10/21/15 Fluphenazine Hcl (Prolixin 10 Mg Tab)10 Mg Tab10 Mg PO HS 30 Days Ref 0 Prov:Shawn Rendon MD 10/21/15 Divalproex Sodium (Divalproex Sodium Dr)500 Mg Tnb089 Mg PO HS 30 Days Ref 0 Prov:Shawn Rendon MD 10/21/15 Current Medications Medications (Trade) Dose Ordered Sig/Leonard Route Start Time Stop Time Status Last Admin (NS 1000 ml Inj) 1,000 ml @ 115 mls/hr Q8H42M IV 08/21/16 09:23 08/24/16 05:25 (NS Flush) 2 ml UNSCH PRN IV FLUSH 08/21/16 09:30 (NS Flush) 2 ml BID IV FLUSH 08/21/16 21:00 08/23/16 21:00 (Senokot) 17.2 mg Q12H PRN PO 08/21/16 09:30 (Lovenox Inj) 40 mg Q24H SQ 08/21/16 10:00 08/24/16 10:00 (Narcan Inj) 0.4 mg UNSCH PRN IV 08/21/16 09:30 (Norvasc) 2.5 mg DAILY PO 08/21/16 09:30 08/24/16 10:16 (Depakote Er) 500 mg QID PO 08/21/16 13:00 08/24/16 10:15 (Ferrous Sulfate) 325 mg BID PO 08/21/16 09:30 08/24/16 10:15 (Prolixin) 10 mg TID PO 08/21/16 13:00 08/24/16 10:16 (Folate) 1 mg DAILY PO 08/21/16 09:30 08/24/16 10:16 (Neurontin) 800 mg TID PO 08/21/16 13:00 08/24/16 10:15 (Lopid) 600 mg BIDAC PO 08/21/16 09:30 08/24/16 05:24 (Vistaril) 50 mg DAILY PO 08/21/16 09:30 08/24/16 10:16 (Synthroid) 100 mcg DAILY@06 PO 08/22/16 06:00 08/24/16 05:24 (Ativan) 1 mg QID PO 08/21/16 13:00 08/24/16 10:15 (Mobic) 15 mg DAILY PO 08/21/16 09:30 08/24/16 10:15 (Theragran) 1 tab DAILY PO 08/21/16 09:30 08/24/16 10:16 (Artane) 5 mg BID PO 08/21/16 09:30 08/24/16 10:16 (Oscal-D 250-125) 500 mg BID PO 08/21/16 09:45 08/24/16 10:14 (Protonix) 20 mg DAILY PO 08/21/16 09:45 08/24/16 10:15 (D50w (Vial) Inj) 25 ml UNSCH PRN IV PUSH 08/21/16 09:30 (Glucagon Inj) 1 mg UNSCH PRN OTHER 08/21/16 09:30 (Levemir Inj) 5 units Q12HR SQ 08/21/16 09:30 08/24/16 10:14 (Benadryl) 50 mg Q6H PRN PO 08/23/16 01:30 Lactulose 30 ml 30 ml DAILY PO 08/23/16 11:45 08/24/16 09:00 (Rocephin Inj/NS Inj) 100 ml @ 200 mls/hr Q24H IV 08/23/16 17:00 08/23/16 20:14 Family History Patient denies Social History Patient was born and raised in [place], she has been living in a [facility] for 2 years, she is , but , mother of 2 kids, she is unemployed, supported by [employer], her highest level of education is 10th grade Patient's Strengths (min. 2) Compliant with medications Physical Exam No EPS, no parkinsonism, no tremors, no sedation, no psychomotor retardation of agitation present Vital Signs Vital Signs Date Time Temp Pulse Resp B/P Pulse Ox O2 Delivery O2 Flow Rate FiO2 08/24/16 08:01 97.9 79 18 164/77 93 08/23/16 20:00 Room Air 08/23/16 14:50 21 08/22/16 01:42 4.00 I/O 08/23/16 08/23/16 08/24/16 08:00 16:00 00:00 Intake Total 1200 ml 480 ml Output Total 0 ml Balance 1200 ml 480 ml Lab Results QTc interval is 388 WBG 8.5, Hgb 14.1, HCT 40.4, NA 14.1, K3.8, BUN 32, creatinine 0.7, Depakote levels 43.2 Urine test positive for UTI Toxicology is negative BAL less than 3 Mental Status Examination Appearance woman, overweight, in regular street clothing, good hygiene, older than his stated age, irritable, superficially, Speech: Hesitant Orientation: x3 Memory: Unremarkable Thought Process: Goal Directed, Loose Association, Tangential Thought Content: Paranoid Hallucination Type: None Suicidal Ideation: No Homicidal Ideation: No Previous Homicide Attempts: No Judgment: Poor Affect: Irritable Mood: Angry Motor Activity: Normal gait Assessment & Plan Problem List: (1) Schizophrenia, paranoid, chronic with acute exacerbation Assessment & Plan: The patient is a 56-year-old woman with extensive psychiatric history of paranoid schizophrenia, multiple psychiatric hospitalizations, receiving outpatient care by visiting psychiatrist/nurse practitioner Jamin Figueroa in her [facility], she has been stable on Depakote 500 mg twice a day, fluphenazine 10 mg BId, Artane 5 mg twice a day , her last psychiatric hospitalization was here at [place], October 2015, she was under the care of Dr. Rendon, documentation was reviewed, she doesn't have any previous suicidal attempts, medical history of diabetes mellitus or hypertension, who was brought to the hospital due to altered mental status and agitation, she was found to have significant UTI and sepsis with Escherichia coli. Patient was consulted to psychiatry due to disorganized behavior, paranoia and agitation. On psychiatric evaluation patient presents resistant, irritable, oppositional, with marked paranoia against staff and psychiatrist, agitation, restlessness. She also presents disorganized and tangential speech, which is usually redirectable, no aggressive behavior observed.. Patient denies suicidal or homicidal ideation, she denies visual and auditory hallucinations. As per discussion with outpatient nurse practitioner patient seems to be decompensated and having an acute exacerbation of schizophrenia need a psychiatric admission for stabilization of symptoms and medication adjustment. We will continue Depakote 500 mg twice a day, will continue fluphenazine 10 mg, but will start taper down Artane to 5 mg daily due to increased risk of EPS which increase at the same time the risk of repetitive UTI and pneumonia. We'll start a low dose of Seroquel 25 mg twice a day. Patient can be transferred to med psych unit, , once medical team decide is appropriate. Consult appreciated. ICD Code: F20.0 Assessment & Plan Estimated LOS: Oswald Hall MD Aug 24, 2016 11:27
--- NOTE | 2016-08-24 12:04 | HHI.FPPN ---
Subjective Remarks No acute events overnight. Very calm today AM. Denies CP/SOB, N/V, abdominal pain. Had good sized BM today AM. No concerns. (Carlos Hope MD R1) Objective Vitals Vital Signs Date Time Temp Pulse Resp B/P Pulse Ox O2 Delivery O2 Flow Rate FiO2 08/24/16 08:01 97.9 79 18 164/77 93 08/24/16 04:29 97.9 79 16 155/81 92 08/23/16 23:55 97.9 84 16 167/90 96 08/23/16 20:56 98.1 72 16 181/92 98 08/23/16 20:00 Room Air 08/23/16 16:00 97.4 79 18 148/80 98 08/23/16 14:50 96 Nasal Cannula 21 08/23/16 12:00 98.6 80 18 167/94 98 I/O 08/23/16 08/23/16 08/23/16 08/24/16 08/24/16 08/24/16 07:00 15:00 23:00 07:00 15:00 23:00 Intake Total 1200 ml 480 ml 539 ml Output Total 0 ml Balance 1200 ml 480 ml 539 ml Intake Oral 1200 ml 480 ml 0 ml IV Total 539 ml Output Urine Total 0 ml # Voids 4 3 3 # Bowel Movements 2 0 0 (Carlos Hope MD R1) Result Diagram: 08/24/16 0649 08/24/16 0649 Objective Remarks GEN: WDWN lying comfortably in bed, NAD SKIN: Mildly jaundiced on abdomen. No other lesions or rashes. RESP: CTAB, no crackles or wheezes CV: NRRR, normal S1/S2, no MRG ABDOMEN: Soft, moderately distended, non-tender, NABS. Positive fluid wave. NEURO: Awake, alert, oriented x3. Grossly non-focal. No asterixis. PSYCH: Calm, collected. Appears less dishevelled today than on admission. Thought process linear. Does not appear to be responding to internal stimuli. No AVH. (Carlos Hope MD R1) A/P Assessment and Plan 56 yo female with PMH of schizophrenia, DM, HTN, hypothyroidism presenting with AMS, urinary tract infection and e.coli bacteremia. Discharge Planning Discharge pending negative blood culture, improvement in clinical status, no leukocytosis or fevers for 24 hours at least (Carlos Hope MD R1) Attending Attestation Patient seen and examined, discussed with Dr Hope. I agree with assessment and management as documented and discussed with me. Pt reports that abdominal pain and diarrhea have resolved. She believes she is in the hospital because her psychiatrists at her [facility] gave her haldol. She does not state that she has a UTI or bacteremia. Appreciate Psych, ID involved in this patient's care. (Lo Higgins MD) Problem List: (1) E coli bacteremia Status: Acute Plan: Presented with urinary tract infection and altered mental status, found to have urine culture positive for e.coli and e.coli bacteremia. White count improving, was 22.2 at admission and now 11.6. No fevers. Lactic acid was 1.3. - ID consulted, appreciate assistance - Receiving Rocephin IV - f/u abdominal ultrasound (ordered to assess abdominal source due to distension) - Continue IVF at maintenance - Monitor for fevers and leukocytosis - Surveillance blood Cx tomorrow AM (2) UTI (urinary tract infection) Status: Acute Plan: UA showing many WBC and some casts. Likely this is pyelonephritis versus lower UTI. Also with e.coli bacteremia, likely from urinary tract. Creatinine improving and now normal. - Cefepime IM, switch to IV when she is amenable. - F/u sensitivities of culture, tailor antibiotic coverage accordingly. (3) Hyperammonemia Status: Acute Plan: Ammonia is 64, 36 on admission. Difficult to examine patient but currently with no apparent decreasing consciousness. She is up in a chair and walking around without difficulty. Likely from hypovolemia, infectious process, poor nutrition. Possibly from alcohol use. Valproic acid can also cause elevated ammonia. - Monitor for lethargy/decreased consciousness. - Consider lactulose if continuing to rise or change in consciousness. (4) Undifferentiated schizophrenia Status: Chronic Plan: Had agitation and active delusions on admission. Questionably responding to internal stimuli; difficult to tell whether uncontrolled schizophrenia versus acute delirium. 08/23 she was attempting to leave the floor and security had to be called. Had extensive discussion with the patient, and she was not able to articulate what we are treating her for in the hospital, why treatment is important, or what will happen if she does not get treated for her condition and chooses to leave. - Patient Carin acted because she lacks insight into the consequences of refusing medical care and is not able to care for herself outside of the hospital. - Psychiatry consulted, appreciate assistance - Continue Depakote 500 mg twice a day - Continue fluphenazine 10 mg, but start taper down Artane to 5 mg daily due to increased risk of EPS which increase at the same time the risk of repetitive UTI and pneumonia - Start a low dose of Seroquel 25 mg twice a day - Patient can be transferred to med psych unit, , once medical team decide is appropriate (5) Type 2 diabetes mellitus Status: Chronic Plan: Blood glucose wnl since noon yesterday. - Levemir 5 units BID - Low-dose SSI - Accu-checks AC&HS - Diabetic diet - Continue home gabapentin (6) Essential hypertension Status: Chronic Plan: BP stable - Continue home amlodipine (7) Hypothyroidism Status: Chronic Plan: - Continue home Synthroid - Check TSH pending (8) FEN Status: Acute Plan: Fluids: NS at 115 cc/hr Elecs: Monitor and replete as needed Nutrition: Diabetic 2200 ADA cons carb (9) No contraindication to deep vein thrombosis (DVT) prophylaxis Status: Acute Plan: Lovenox 40 mg SQ daily d/w Dr. Higgins (Carlos Hope MD R1) Problem Qualifiers (1) UTI (urinary tract infection): Qualified Code: N39.0 - Urinary tract infection without hematuria, site unspecified (2) Type 2 diabetes mellitus: Qualified Code: E11.8 - Type 2 diabetes mellitus with complication, with long- term current use of insulin (3) Hypothyroidism: Qualified Code: E03.9 - Hypothyroidism, unspecified type Carlos Hope MD R1 Aug 24, 2016 12:04 Lo Higgins MD Aug 24, 2016 14:36
[2016-08-24] MEDS: QUEtiapine FUMARATE 25 MG TAB PO SCH ×2 (13:23→21:51)
--- NOTE | 2016-08-24 14:03 | RADRPT ---
EXAM DATE/TIME: 08/24/2016 09:26 [facility] COMPARISON: No previous studies available for comparison. INDICATIONS : Abdominal distention with history of lower abdominal tumor removal. MEDICAL HISTORY : Hypertension. Hypothyroidism. Schizophrenia. Diabetic. SURGICAL HISTORY : Resection of abdominal tumor. ENCOUNTER: Subsequent ACUITY: 3 days PAIN SCORE: 0/10 LOCATION: Bilateral upper quadrant MEASUREMENTS: LIVER: 16.7 cm length COMMON DUCT: 4 mm RIGHT KIDNEY: 12.8 x 6.3 x 6.1 cm LEFT KIDNEY: 11.7 x 5.7 x 5.7 cm SPLEEN: 8.7 cm length AORTA: 1.2cm maximal FINDINGS: LIVER: Normal echotexture without focal lesion or ductal dilatation. COMMON DUCT: No intraluminal mass or stone visualized. GALLBLADDER: Contains no stones, demonstrates no wall thickening or pericholecystic fluid. PANCREAS: A discrete hypoechogenic area is identified in the body the pancreas. RIGHT KIDNEY: No hydronephrosis, stone or mass. LEFT KIDNEY: No hydronephrosis, stone or mass. SPLEEN: No focal lesion. AORTA: Non aneurysmal. IVC: Within normal limits. CONCLUSION: Focal hypodensity in the body the pancreas; CT abdomen with contrast should be consid ered to exclude possible pancreatic mass. No significant abnormality. Nelson Arce MD on August 24, 2016 at 14:00 Board Certified Radiologist. This report was verified electronically.
[2016-08-24] MEDS: cefTRIAXone INJ 2,000 MG in SODIUM CHLORIDE 0.9% INJ 100 ML IV SCH (17:00)
[2016-08-24] MEDS ORDERED: IOHEXOL 350 MG/ML 10 ML VIAL (for RAD DIAG) IV ONE (17:32)
--- NOTE | 2016-08-24 17:44 | RADRPT ---
EXAM DATE/TIME: 08/24/2016 17:26 [facility] COMPARISON: US ABDOMEN - COMPLETE, August 24, 2016, 9:26. INDICATIONS : Evaluate pancreatic mass. IV CONTRAST: 75 cc Omnipaque 350 (iohexol) IV ORAL CONTRAST: No oral contrast ingested. RADIATION DOSE: 7.24 CTDIvol (mGy) MEDICAL HISTORY : Cardiovascular disease. Diabetes mellitus type 2. SURGICAL HISTORY : None. ENCOUNTER: Initial ACUITY: 1 day PAIN SCALE: 5/10 LOCATION: Bilateral lower quadrant TECHNIQUE: Volumetric scanning of the abdomen and pelvis was performed. Using automated exposure control and adjustment of the mA and/or kV according to patient size, radiation dose was kept as low as reasonably achievable to obtain optimal diagnostic quality images. FINDINGS: Abdomen CT: There is an approximate 1.5 cm low attenuating nodule within the left adrenal gland probably an adeno ma. The spleen, pancreas, right adrenal are unremarkable. There is no evidence for any appreciable pa thological adenopathy, free fluid, or bowel obstruction. Bibasilar opacities are present may be due to a combination of consolidation and or pleural effusion. The liver is questionably diffusely fatty without focal lesions for technique. Tiny subcentimeter cyst is present in left kidney with slight sc arring in the right kidney. Pelvic CT: There is no evidence for mass, abscess formation, or any significant adenopathy within the pelvis. IMPRESSION: 1. Left adrenal adenoma and questionable mild fatty liver. 2. No evidence for a pancreatic mass and the questionable area on the patient's prior ultrasound was probably artifactually created. Michel Pino MD on August 24, 2016 at 17:36 Board Certified Radiologist. This report was verified electronically.
[2016-08-24] MEDS ORDERED: TRIHEXYPHENIDYL HCL 5 MG TAB PO SCH (21:00)
[2016-08-25] VITALS: BP 167/88; PULSE 68; RESP 18; TEMP 97.4; O2SAT 95
[2016-08-25] MEDS: SODIUM CHLOR 0.9% 1000 ML INJ 1,000 ML IV SCH ×2 (00:23→01:44)
[2016-08-25 00:30] VITALS: BP 158/82
[2016-08-25 04:00] VITALS: BP 166/81; PULSE 75; RESP 18; TEMP 97.3; O2SAT 96
[2016-08-25] MEDS: GEMFIBROZIL 600 MG TAB PO SCH (06:01)
[2016-08-25] MEDS: LEVOTHYROXINE SODIUM 100 MCG TAB PO SCH (06:01)
[2016-08-25] MEDS: INSULIN ASPART SUPPLEMENTAL SCALE SQ SCH (06:02)
[2016-08-25 06:56] LABS: APTT (PATIENT) 30.1 SEC (24.3-30.1); PROTHROMBIN TIME - PATIENT 10.8 SEC (9.8-11.6)
[2016-08-25 08:00] VITALS: BP 123/65; PULSE 94; RESP 18; TEMP 98.5; O2SAT 95
[2016-08-25] MEDS: INSULIN DETEMIR 100 UNITS/ML VIAL SQ SCH (09:00)
[2016-08-25] MEDS ORDERED: amLODIPine BESYLATE 5 MG TAB PO SCH (09:00)
[2016-08-25] MEDS: GABAPENTIN 400 MG CAP PO SCH ×2 (10:02→12:03)
[2016-08-25] MEDS: LACTULOSE SYRUP 20 GM/30 ML CUP PO SCH (10:02)
[2016-08-25] MEDS: CALCIUM/VITAMIN D 250 MG/125 U TAB PO SCH (10:02)
[2016-08-25] MEDS: MULTIVITAMIN TAB PO SCH (10:02)
[2016-08-25] MEDS: ENOXAPARIN SODIUM 40 MG/0.4 ML SYRINGE SQ SCH (10:03)
[2016-08-25] MEDS: FOLIC ACID 1 MG TAB PO SCH (10:03)
[2016-08-25] MEDS: LORazepam 1 MG TAB PO SCH ×2 (10:03→12:02)
[2016-08-25] MEDS: MELOXICAM 15 MG TAB PO SCH (10:03)
[2016-08-25] MEDS: DIVALPROEX SODIUM E.R. 500 MG TAB PO SCH ×2 (10:03→12:03)
[2016-08-25] MEDS: FERROUS SULFATE 325 MG (65 MG ELEMENTAL IRON) TAB PO SCH (10:04)
[2016-08-25] MEDS: PANTOPRAZOLE SOD 20 MG DELAYED RELEASE TAB PO SCH (10:04)
[2016-08-25] MEDS: SODIUM CHLORIDE 0.9% FLUSH 10 ML FLUSH IV FLUSH SCH (10:04)
[2016-08-25] MEDS: QUEtiapine FUMARATE 25 MG TAB PO SCH (10:04)
[2016-08-25 10:12] VITALS: O2SAT 95
[2016-08-25] MEDS ORDERED: TRIH5TAB2 PO (10:16)
[2016-08-25] MEDS ORDERED: FLUP10TA PO (10:16)
[2016-08-25] MEDS ORDERED: QUET1TAB7 PO (10:16)
--- NOTE | 2016-08-25 10:17 | HHI.DCPOC ---
Discharge Care Plan Diagnosis: (1) E coli bacteremia (2) UTI (urinary tract infection) (3) Schizophrenia, paranoid, chronic with acute exacerbation (4) Type 2 diabetes mellitus (5) Essential hypertension Goals to Promote Your Health * To prevent worsening of your condition and complications * To maintain your health at the optimal level Directions to Meet Your Goals Take your medications as prescribed Follow your dietary instruction Follow activity as directed Keep your appointments as scheduled Take your immunizations and boosters as scheduled If your symptoms worsen call your PCP, if no PCP go to Urgent Care Center or Emergency Room Smoking is Dangerous to Your Health. Avoid second hand smoke Call the 24-hour hour crisis hotline for domestic abuse at Carlos Hope MD R1 Aug 25, 2016 10:17 am
[2016-08-25] MEDS ORDERED: LEVO750T33 PO (10:20)
[2016-08-25] MEDS ORDERED: LEVOFLOXACIN 750 MG TAB PO SCH (11:00)
[2016-08-25 12:00] VITALS: BP 146/86; PULSE 75; RESP 20; TEMP 97.8; O2SAT 95
--- NOTE | 2016-08-25 12:12 | HHI.PYPN ---
Subjective Remarks Patient seen for psychiatric reevaluation today, patient is found laying in her bed, she is very irritable, guarded and paranoid. She says that is for psychiatrists's fault she is here in the hospital and the reason she became unconscious "is due to the poison the you are giving me". Patient seems to be upset, but not agitated or hostile. At times becomes disorganized, but redirectable. She reports angry mood, but denies depressive symptoms such as hopelessness, helplessness, anhedonia, she denies suicidal and homicidal ideation, she denies visual and auditory hallucinations. Patient has been compliant with her medications, no aggressive behavior or agitation reported. Review of Systems Other No somatic complaints Objective Alert: Yes Sutton: Person, Place, Date Mood: Angry Affect: Other (irritable) Memory Intact: Comment (no formally examinated ) Hallucinations: Other (she denies) Delusions: Yes Delusion Type: Paranoid Suicidal: Ideation (she denies) Homicidal: Ideation (she denies) Insight/Judgment Poor Labs Test 08/25/16 06:30 Prothrombin Time 10.8 SEC Prothromb Time International 1.0 RATIO Ratio Activated Partial 30.1 SEC Thromboplast Time Ammonia 69 MCMOL/L Date/Time Procedure Status Source Growth 08/25/16 06:30 Aerobic Blood Culture Received Blood Peripheral Pending 08/25/16 06:30 Anaerobic Blood Culture Received Blood Peripheral Pending 08/21/16 07:43 Influenza Types A,B Antigen (EDEL) - Final Complete Nasal Aspirate NEGATIVE FOR FLU A AND B ANTIGEN.... 08/21/16 07:38 Aerobic Blood Culture - Preliminary Resulted Blood Peripheral NO GROWTH IN 4 DAYS 08/21/16 07:38 Anaerobic Blood Culture - Preliminary Resulted Blood Peripheral NO GROWTH IN 4 DAYS 08/21/16 06:50 Urine Culture - Final Complete Urine Catheterized Urine Escherichia Coli Vitals/IOs Vital Signs Date Time Temp Pulse Resp B/P Pulse Ox O2 Delivery O2 Flow Rate FiO2 08/25/16 10:12 95 21 08/25/16 08:00 98.5 94 18 123/65 08/25/16 07:15 Room Air 4.00 Intake and Output 08/24/16 08/24/16 08/25/16 08:00 16:00 00:00 Intake Total 539 ml 360 ml 480 ml Balance 539 ml 360 ml 480 ml Assessment & Plan Problem List: (1) Schizophrenia, paranoid, chronic with acute exacerbation Assessment & Plan: Will discontinue completely Artane, we will increase Seroquel to 50 really 1 twice a day to help with psychosis. Continue the rest of psychotropics at the same dose. Brief supportive psychotherapy provided. ICD Code: F20.0 Assessment & Plan Estimated LOS: days Justification for Cont. Inpt. Patient will be transferred to psychiatry once medical team decide there is appropriate Oswald Flood MD Aug 25, 2016 12:12
--- NOTE | 2016-08-25 12:22 | HHI.FPPN ---
Subjective Remarks No acute events overnight. Had pulled out IV a couple times but allowed replacement. No CP, SOB, dysuria, N/V. Objective Vitals Vital Signs Date Time Temp Pulse Resp B/P Pulse Ox O2 Delivery O2 Flow Rate FiO2 08/25/16 10:12 95 21 08/25/16 08:00 98.5 94 18 123/65 95 08/25/16 07:15 Room Air 4.00 21 08/25/16 04:00 97.3 75 18 166/81 96 08/25/16 00:30 158/82 08/25/16 00:00 97.4 68 18 167/88 95 08/24/16 21:12 97 21 08/24/16 21:00 Room Air 08/24/16 21:00 156/88 08/24/16 20:01 98.3 88 19 170/89 97 08/24/16 16:01 98.1 82 19 156/74 94 I/O 08/24/16 08/24/16 08/24/16 08/25/16 08/25/16 08/25/16 07:00 15:00 23:00 07:00 15:00 23:00 Intake Total 539 ml 360 ml 480 ml 240 ml Balance 539 ml 360 ml 480 ml 240 ml Intake Oral 0 ml 360 ml 480 ml 240 ml IV Total 539 ml 0 ml # Voids 3 5 2 2 # Bowel Movements 0 1 0 0 Result Diagram: 08/24/16 0649 08/24/16 0649 Imaging Last Impressions Abdomen Ultrasound 08/24/16 0000 Signed Impressions: Service Date/Time: Wednesday, August 24, 2016 09:26 - CONCLUSION: Focal hypodensity in the body the pancreas; CT abdomen with contrast should be considered to exclude possible pancreatic mass. No significant abnormality. Nelson Arce MD Chest X-Ray 08/21/16 0650 Signed Impressions: Service Date/Time: Sunday, August 21, 2016 06:56 - CONCLUSION: Normal examination. Minimal pulmonary vascular prominence in the lung bases. Nishant Wilkins MD Head CT 08/21/16 0000 Signed Impressions: Service Date/Time: Sunday, August 21, 2016 07:26 - CONCLUSION: 1. No acute intracranial abnormality is identified. 2. Mucoperiosteal thickening within the ethmoid and right maxillary sinus. Chan Smith MD Objective Remarks GEN: WDWN lying comfortably in bed, NAD SKIN: No other lesions or rashes. RESP: CTAB, no crackles or wheezes CV: NRRR, normal S1/S2, no MRG ABDOMEN: Soft, mildly distended, non-tender, NABS. NEURO: Awake, alert, oriented x3. Grossly non-focal. No asterixis. PSYCH: Calm, collected. Appears kempt. Thought process linear. Does not appear to be responding to internal stimuli. A/P Assessment and Plan 56 yo female with PMH of schizophrenia, DM, HTN, hypothyroidism presenting with AMS, urinary tract infection and e.coli bacteremia. Discharge Planning To inpatient psych Problem List: (1) E coli bacteremia Status: Acute Plan: Presented with urinary tract infection and altered mental status, found to have urine culture positive for e.coli and e.coli bacteremia. White count improving, was 22.2 at admission and now 11.6. No fevers. Lactic acid was 1.3. Abdominal U/S showing incidental pancreatic mass CT abdomen/pelvis showing no pancreatic mass (likely was artifact), small adrenal adenoma - ID consulted, appreciate assistance - Discharge with Levaquin 750 mg PO daily to complete 10 total days - F/u repeat blood culture (2) UTI (urinary tract infection) Status: Acute Plan: UA showing many WBC and some casts. Likely this is pyelonephritis versus lower UTI. Also with e.coli bacteremia, likely from urinary tract. Creatinine improving and now normal. - Treat as above (E. coli bacteremia) (3) Hyperammonemia Status: Acute Plan: Ammonia is 64, 36 on admission. Difficult to examine patient but currently with no apparent decreasing consciousness. She is up in a chair and walking around without difficulty. Likely from hypovolemia, infectious process, poor nutrition. Possibly from alcohol use. Valproic acid can also cause elevated ammonia. - Monitor for lethargy/decreased consciousness. - Consider lactulose if continuing to rise or change in consciousness. (4) Undifferentiated schizophrenia Status: Chronic Plan: Had agitation and active delusions on admission. Questionably responding to internal stimuli; difficult to tell whether uncontrolled schizophrenia versus acute delirium. 08/23 she was attempting to leave the floor and security had to be called. Had extensive discussion with the patient, and she was not able to articulate what we are treating her for in the hospital, why treatment is important, or what will happen if she does not get treated for her condition and chooses to leave. - Patient Carin acted because she lacks insight into the consequences of refusing medical care and is not able to care for herself outside of the hospital. - Psychiatry consulted, appreciate assistance - Continue Depakote 500 mg twice a day - Continue fluphenazine 10 mg, but start taper down Artane to 5 mg daily due to increased risk of EPS which increase at the same time the risk of repetitive UTI and pneumonia - Start a low dose of Seroquel 25 mg twice a day - Transfer to inpatient psychiatry (1999 versus Med/psych) on hospital discharge (5) Type 2 diabetes mellitus Status: Chronic Plan: Blood glucose wnl since noon yesterday. - Levemir 5 units BID - Low-dose SSI - Accu-checks AC&HS - Diabetic diet - Continue home gabapentin - Resume home diabetes meds on discharge (6) Essential hypertension Status: Chronic Plan: BP had been running somewhat high this hospital stay - Increase amlodipine to 5 mg daily (7) Hypothyroidism Status: Chronic Plan: - Continue home Synthroid (8) FEN Status: Acute Plan: Fluids: PO only now that stable and eating well Elecs: Monitor and replete as needed Nutrition: Diabetic 2200 ADA cons carb (9) No contraindication to deep vein thrombosis (DVT) prophylaxis Status: Acute Plan: Lovenox 40 mg SQ daily d/w Dr. Broussard Problem Qualifiers (1) UTI (urinary tract infection): Qualified Code: N39.0 - Urinary tract infection without hematuria, site unspecified (2) Type 2 diabetes mellitus: Qualified Code: E11.8 - Type 2 diabetes mellitus with complication, with long- term current use of insulin (3) Hypothyroidism: Qualified Code: E03.9 - Hypothyroidism, unspecified type Carlos Hope MD R1 Aug 25, 2016 12:22 pm
[2016-08-25] MEDS ORDERED: AMLO5TAB2 PO (12:25)
--- NOTE | 2016-08-25 14:31 | EKG ---
Date Performed: 08/25/2016 Time Performed: 10:59:46 PTAGE: 56 years EKG: Probable Sinus rhythm Normal ECG NO PREVIOUS TRACING DOCTOR: Edmar Gutierrez Interpretating Date/Time 08/25/2016 14:30:33
--- NOTE | 2016-08-25 17:43 | HHI.DS ---
Discharge Summary Admission Date Aug 21, 2016 at 8:39 am Discharge Date: Aug 25, 2016 Admitting Diagnosis sepsis, uti (1) E coli bacteremia Diagnosis: Principal Plan: Presented with urinary tract infection and altered mental status, found to have urine culture positive for e.coli and e.coli bacteremia. White count improving, was 22.2 at admission and now 11.6. No fevers. Lactic acid was 1.3. Abdominal U/S showing incidental pancreatic mass CT abdomen/pelvis showing no pancreatic mass (likely was artifact), small adrenal adenoma - ID consulted, appreciate assistance - Discharge with Levaquin 750 mg PO daily to complete 10 total days - F/u repeat blood culture (2) UTI (urinary tract infection) Diagnosis: Principal Plan: UA showing many WBC and some casts. Likely this is pyelonephritis versus lower UTI. Also with e.coli bacteremia, likely from urinary tract. Creatinine improving and now normal. - Treat as above (E. coli bacteremia) (3) Hyperammonemia Diagnosis: Secondary Plan: Ammonia is 64, 36 on admission. She is up in a chair and walking around without difficulty. Likely from hypovolemia, infectious process, poor nutrition. Possibly from alcohol use. Valproic acid can also cause elevated ammonia. - Consider lactulose if continuing to rise or change in consciousness. (4) Undifferentiated schizophrenia Diagnosis: Secondary Plan: Had agitation and active delusions on admission. Questionably responding to internal stimuli; difficult to tell whether uncontrolled schizophrenia versus acute delirium. 08/23 she was attempting to leave the floor and security had to be called. Had extensive discussion with the patient, and she was not able to articulate what we are treating her for in the hospital, why treatment is important, or what will happen if she does not get treated for her condition and chooses to leave. - Patient Carin acted because she lacks insight into the consequences of refusing medical care and is not able to care for herself outside of the hospital. - Psychiatry consulted, appreciate assistance - Continue Depakote 500 mg twice a day - Continue fluphenazine 10 mg, but start taper down Artane to 5 mg daily due to increased risk of EPS which increase at the same time the risk of repetitive UTI and pneumonia - Start a low dose of Seroquel 25 mg twice a day - Transfer to inpatient psychiatry (1999 versus Med/psych) on hospital discharge (5) Type 2 diabetes mellitus Diagnosis: Secondary Plan: Blood glucose wnl since noon yesterday. - Levemir 5 units BID - Low-dose SSI - Accu-checks AC&HS - Diabetic diet - Continue home gabapentin - Resume home diabetes meds on discharge (6) Essential hypertension Diagnosis: Secondary Plan: BP had been running somewhat high this hospital stay - Increase amlodipine to 5 mg daily (7) Hypothyroidism Diagnosis: Secondary Plan: - Continue home Synthroid Consultants ID - Dr. Lidnquist Psych - Dr. Flood Brief History History limited due to patient being drowsy and uncooperative on awakening 56 year old with PMH of DM, HTN, schizophrenia presenting for altered mental status. Per EMS and record review, patient having altered mental status since yesterday from an outside facility (her [facility]). She cannot articulate the events of night before. She denies any chest pain, SOB, abdominal pain, cough, fever, wheezing. She seems to be having some active delusions (says she thinks she had a baby yesterday). Unable to obtain further details. CBC/BMP: 08/24/16 0649 08/24/16 0649 Significant Findings Laboratory Tests Test 08/23/16 08/24/16 08/25/16 06:40 06:49 06:30 White Blood Count 11.6 TH/MM3 (4.0-11.0) Monocytes (%) (Auto) 8.3 % (0.0-8.0) Monocytes # (Auto) 1.0 TH/MM3 (0-0.9) Estimat Glomerular Filtration 82 ML/MIN (>89) 79 ML/MIN (>89) Rate Ammonia 64 MCMOL/L 59 MCMOL/L 69 MCMOL/L (11-32) (11-32) (11-32) Carbon Dioxide Level 32.2 MEQ/L (21.0-32.0) Random Glucose 109 MG/DL (74-106) Albumin 2.5 GM/DL (3.4-5.0) Imaging Last Impressions Abdomen Ultrasound 08/24/16 0000 Signed Impressions: Service Date/Time: Wednesday, August 24, 2016 09:26 - CONCLUSION: Focal hypodensity in the body the pancreas; CT abdomen with contrast should be considered to exclude possible pancreatic mass. No significant abnormality. Nelson Arce MD Chest X-Ray 08/21/16 0650 Signed Impressions: Service Date/Time: Sunday, August 21, 2016 06:56 - CONCLUSION: Normal examination. Minimal pulmonary vascular prominence in the lung bases. Nishant Wilkins MD Head CT 08/21/16 0000 Signed Impressions: Service Date/Time: Sunday, August 21, 2016 07:26 - CONCLUSION: 1. No acute intracranial abnormality is identified. 2. Mucoperiosteal thickening within the ethmoid and right maxillary sinus. Chan Smith MD PE at Discharge GEN: WDWN lying comfortably in bed, NAD SKIN: No other lesions or rashes. RESP: CTAB, no crackles or wheezes CV: NRRR, normal S1/S2, no MRG ABDOMEN: Soft, mildly distended, non-tender, NABS. NEURO: Awake, alert, oriented x3. Grossly non-focal. No asterixis. PSYCH: Calm, collected. Appears kempt. Thought process linear. Does not appear to be responding to internal stimuli. Hospital Course 56 yo with h/o schizophrenia admitted for altered mental status found to have UTI. Antibiotic coverage initially with cefepime, then transitioned to oral Levaquin once urine and blood Cx grew E coli. ID consulted due to bacteremia, recommended total of 10 day course of oral Levaquin. Due to acute psychosis and uncertainty whether it was a true breakthrough schizophrenic episode versus entirely due to medical condition, psychiatry was consulted who recommended inpatient psychiatric stay for medication adjustment once medically cleared. After transition to Levaquin PO, patient was medically stable with improved mental status and cleared for D/C to psychiatric facility. This hospital stay, an abdominal U/S showed incidental pancreatic mass. This was later found to be artifact on abdominal CT. Abdominal CT also showed incidental small adrenal adenoma, likely benign. Pt Condition on Discharge: Good Discharge Disposition: Disc to Psych Care Fac Discharge Instructions DIET: Follow Instructions for: As Tolerated, No Restrictions Activities you can perform: Regular-No Restrictions Follow up Referrals: PCP Follow-up - 2 Weeks Psychiatry Adult - 2 Weeks New Medications: Amlodipine (Amlodipine) 5 Mg Tab 5 MG PO DAILY Blood Pressure Management #30 Ref 0 TAB Levofloxacin (Levofloxacin) 750 Mg Tab 750 MG PO DAILY Infection #7 Ref 0 TAB Fluphenazine (Fluphenazine) 10 Mg Tab 10 MG PO TID #90 TAB Quetiapine (Quetiapine) 25 Mg Tab 25 MG PO BID #60 TAB Continued Medications: Calcium Carbonate-Cholecalciferol (Calcium 500+D) 500-200 Mg-Unit Tab 1 TAB PO BID TAB Divalproex ER (Divalproex ER) 500 Mg Tab 500 MG PO QID Control Seizures #30 Ref 0 TAB Ferrous Sulfate (Ferrous Sulfate) 325 Mg Tab 325 MG PO BID Nutritional Supplement #30 Ref 0 TAB Folic Acid (Folate) 1 Mg Tab 1 MG PO DAILY Nutritional Supplement Ref 0 TAB Gabapentin (Gabapentin) 800 Mg Tab 800 MG PO TID #90 Ref 0 TAB Gemfibrozil (Gemfibrozil) 600 Mg Tab 600 MG PO BIDAC Take 30 minutes prior to breakfast and dinner. #60 Ref 0 TAB Glipizide ER (Glipizide ER) 5 Mg Eleno 5 MG PO DAILY Take with breakfast or first main meal of the day. Blood Sugar Management #30 Ref 0 TAB Hydroxyzine Pamoate (Hydroxyzine Pamoate) 50 Mg Cap 50 MG PO DAILY Ref 0 CAP Insulin Glargine Inj (Lantus Solostar Pen Inj) 300 Unit/3 Ml Pen 15 UNITS SQ DAILY Blood Sugar Management Ref 0 PEN Levothyroxine (Levothyroxine) 100 Mcg Tab 100 MCG PO DAILY Thyroid #30 Ref 0 TAB Lorazepam (Lorazepam) 1 Mg Tab 1 MG PO QID ANXIETY Ref 0 TAB Meloxicam (Meloxicam) 15 Mg Tab 15 MG PO DAILY Arthritis Pain #30 Ref 0 TAB Metformin (Glucophage) 1,000 Mg Tab 1000 MG PO BIDPC With a meal Blood Sugar Management #60 Ref 0 TAB Multiple Vitamin (Multi Vitamin) 1 Tab Tab 1 TAB PO DAILY TAB Omeprazole (Omeprazole) 20 Mg Tab 20 MG PO DAILY #30 Ref 0 TAB Discontinued Medications: Amlodipine (Amlodipine) 2.5 Mg Tab 2.5 MG PO DAILY Blood Pressure Management #30 Ref 0 TAB Fluphenazine (Fluphenazine) 10 Mg Tab 1 TAB PO TID Trihexyphenidyl (Trihexyphenidyl) 5 Mg Tab 5 MG PO BID Parkinson Disease Mgmt #60 Ref 0 TAB Carlos Hope MD R1 Aug 25, 2016 5:43 pm
[2016-08-25] MEDS ORDERED: QUEtiapine FUMARATE 25 MG TAB PO SCH (21:00)
== END 2016-08-25 12:19 | DRG 872 ==
LOC: NEPC 06:43 → NEDA 08:39 → N04A 13:25 → N04B 15:20
PROVIDERS: ADMIT Family Medicine; ATTEND Family Medicine
DX: A41.51 Sepsis due to Escherichia coli [E. coli] (principal); E72.20 Disorder of urea cycle metabolism, unspecified; N39.0 Urinary tract infection, site not specified; F20.0 Paranoid schizophrenia; I10 Essential (primary) hypertension; E11.9 Type 2 diabetes mellitus without complications; Z79.84 Long term (current) use of oral hypoglycemic drugs; Z79.4 Long term (current) use of insulin; E03.9 Hypothyroidism, unspecified; R19.7 Diarrhea, unspecified; F17.210 Nicotine dependence, cigarettes, uncomplicated
CPT/HCPCS: 70450; 71010; 74177; 76700; 80048; 80053; 80164; 80307; 81001; 82140; 82550; 82948; 83605; 83735; 84100; 84443; 84484; 85007; 85025; 85027; 85610; 85730; 87040; 87077; 87086; 87186; 87205; 87804; 93005; 96365; J0692; J0696; J1650; J1815; J7030; Q9967

== ENCOUNTER 2016-08-25 12:45 | Inpatient (IN) | payer MEDICARE, MEDICAID ==
[~2016-08-25 12:45] MED LIST changes: +ACET325T PO; +AMLO5TAB2 PO; +CALC1TAB42 PO; -CALC500T21 PO; -DIVA500 PO; +DIVA500T3 PO; -FE T325T PO; +FERR325T PO; -FLUP10 PO; +FLUP10TA PO; -FOLI1TAB PO; +FOLI1TAB4 PO; -GABA400C5 PO; +GABA800T PO; +GLIP1TAB49 PO; +GLUC1000 PO; -GUAI600 PO; +LANTINJ SQ; -LEVEMIR SQ; +LEVO100T5 PO; -LEVO50TA4 PO; +LEVO750T33 PO; -LORA-475 PO; +LORA1TAB12 PO; +MELO-1 PO; -METF500 PO; +MULT-135 PO; +OMEP20TA PO; -OMEP20TA39 PO; +QUET1TAB7 PO; -TAB-TAB PO
[2016-08-25 13:27] VITALS: BP 173/92; PULSE 83; RESP 22; TEMP 97.6; O2SAT 98
[2016-08-25] MEDS: amLODIPine BESYLATE 5 MG TAB PO SCH (15:00)
[2016-08-25] MEDS: NICOTINE 21 MG/24 HR PATCH T-DERMAL SCH (15:00)
[2016-08-25] MEDS: REMOVE OLD PATCH T-DERMAL SCH (15:14)
[2016-08-25] MEDS: INSULIN DETEMIR 100 UNITS/ML VIAL SQ SCH (15:15)
[2016-08-25] MEDS: FERROUS SULFATE 325 MG (65 MG ELEMENTAL IRON) TAB PO SCH ×2 (15:16→21:28)
[2016-08-25] MEDS: MELOXICAM 15 MG TAB PO SCH (15:18)
[2016-08-25] MEDS: GEMFIBROZIL 600 MG TAB PO SCH (15:18)
[2016-08-25] MEDS: MULTIVITAMIN TAB PO SCH (15:19)
[2016-08-25] MEDS: PANTOPRAZOLE SOD 20 MG DELAYED RELEASE TAB PO SCH (15:19)
[2016-08-25] MEDS ORDERED: LORazepam 0.5 MG TAB PO PRN (17:00)
[2016-08-25] MEDS ORDERED: LORazepam 2 MG/ML VIAL IM PRN ×2 (17:00)
[2016-08-25] MEDS ORDERED: LORazepam 1 MG TAB PO PRN (17:00)
[2016-08-25] MEDS: GABAPENTIN 400 MG CAP PO SCH (18:00)
[2016-08-25] MEDS: DIVALPROEX SODIUM E.R. 500 MG TAB PO SCH ×2 (18:00→21:28)
[2016-08-25] MEDS: metFORMIN HCL 500 MG TAB PO SCH (18:00)
[2016-08-25 19:36] VITALS: BP 164/78; PULSE 69; RESP 16; TEMP 98.1; O2SAT 95
[2016-08-26 05:44] VITALS: BP 148/89; PULSE 107; RESP 18; TEMP 98.1; O2SAT 96
[2016-08-26] MEDS: GEMFIBROZIL 600 MG TAB PO SCH ×2 (06:01→16:49)
[2016-08-26] MEDS: MELOXICAM 15 MG TAB PO SCH (09:00)
[2016-08-26] MEDS: MULTIVITAMIN TAB PO SCH (09:00)
[2016-08-26] MEDS: amLODIPine BESYLATE 5 MG TAB PO SCH (09:00)
[2016-08-26] MEDS: GABAPENTIN 400 MG CAP PO SCH ×3 (09:00→16:50)
[2016-08-26] MEDS: FERROUS SULFATE 325 MG (65 MG ELEMENTAL IRON) TAB PO SCH ×2 (09:00→21:17)
[2016-08-26] MEDS: metFORMIN HCL 500 MG TAB PO SCH ×2 (09:00→16:50)
[2016-08-26] MEDS: INSULIN DETEMIR 100 UNITS/ML VIAL SQ SCH (09:00)
[2016-08-26] MEDS: DIVALPROEX SODIUM E.R. 500 MG TAB PO SCH ×4 (09:00→21:17)
[2016-08-26] MEDS ORDERED: QUEtiapine FUMARATE 25 MG TAB PO SCH (09:00)
[2016-08-26] MEDS: PANTOPRAZOLE SOD 20 MG DELAYED RELEASE TAB PO SCH (09:00)
[2016-08-26] MEDS: NICOTINE 21 MG/24 HR PATCH T-DERMAL SCH (09:00)
[2016-08-26] MEDS: LEVOFLOXACIN 750 MG TAB PO SCH (11:00)
--- NOTE | 2016-08-26 11:42 | HHI.HP ---
Provisional Diagnosis Admission Date Aug 25, 2016 at 12:45 [place] I. Chronic paranoid schizophrenia [place] II. Deferred [place] III. UTI [place] IV. Extensive history of chronic mental illness, [place] V. 40 Certification of Person's Competence To Provide Express and Informed Consent I have personally examined Constance العلي , a person being served at [facility] on, Aug 26, 2016 11:31. Express and informed consent means consent voluntarily given in writing, by a competent person, after sufficient explanation and disclosure of the subject matter involved to enable the person to make a knowing and willful decision without any element of force, fraud, deceit, duress, or other form of constraint or coercion. This person is 18 years of age or older, is not now known to be incompetent to consent to treatment with a guardian advocate, and does not have a health care surrogate or proxy currently making medical treatment decisions. I have found this person to be one of the following: [] Competent to provide express and informed consent, as defined above, for voluntary admission to this facility and is competent to provide express and informed consent for treatment. He/she has the consistent capacity to make well reasoned, willful, and knowing decisions concerning his or her medical or mental health treatment. The person fully and consistently understands the purpose of the admission for examination/placement and is fully capable of personally exercising all rights assured [place] Incompetent to provide express and informed consent to voluntary admission, and this is incompetent to provide express and informed consent to treatment. The person must be transferred to involuntary status and a petition for a guardian advocate filed with the Circuit Court. [X] Refusing to provide express and informed consent to voluntary admission but is competent to provide express and informed consent for treatment. The person must be discharged or transferred to involuntary status. Form shall be completed within 24 hours of a person's arrival at the receiving facility and filed in the clinical record of each person: 1. Admitted on a voluntary basis 2. Permitted to provide express and informed consent to his/her own treatment 3. Allowed to transfer from involuntary to voluntary status 4. Prior to permitting a person to consent to his or her own treatment after having been previously found incompetent to consent to treatment. History of Present Illness Capacity: Has Capacity HPI 08/24/16: The patient is a 56-year-old woman, domiciled in a [facility], single, unemployed, supported by [facility], with extensive psychiatric history of paranoid schizophrenia, multiple psychiatric hospitalizations, receiving outpatient care by visiting psychiatrist/nurse practitioner Jamin Figueroa in her [facility], she has been stable on Depakote 500 mg twice a day, fluphenazine and milligram twice a day, Artane 5 mg twice a day , her last psychiatric hospitalization was here at [facility], October 2015, she was under the care of Dr. Rendon, documentation was reviewed, she doesn't have any previous suicidal attempts, medical history of diabetes mellitus or hypertension, who was brought to the hospital due to altered mental status and agitation, she was found to have significant UTI and sepsis with Escherichia coli. Patient was consulted to psychiatry due to disorganized behavior, paranoia and agitation. On psychiatric evaluation today patient is found in her bed, she is irritable, superficially cooperative. When I presented myself as a psychiatrist, she became verbally hostile stating that I am trying to poison her with the psychiatric medication she is taking. She says that the reason she is here in the hospital is because her psychiatrist in [facility] has been prescribing her with medication that are poisoning her body. Patient says that she has been trying to leave this place, "because I see people coming and going, they are never the same people and I don't trust them". Patient reports angry mood, increased anxiety, poor sleep, but denies depressive symptoms, denies anhedonia, denies hopelessness, denies helplessness, denies suicidal and homicidal ideation. Patient denies visual and auditory hallucinations at this moment. Patient is fully oriented 3, without any attention deficit, without fluctuation of consciousness and not gross cognitive impairment observed. However patient is to oppositional and resistant to the evaluation to perform a full cognitive evaluation. At times during the evaluation patient become disorganized making not much sense, but she is redirectable. Collateral information from her psychiatrist nurse practitioner, Jamin Figueroa, was obtained, he says that the patient was at baseline last time he saw her last week. Patient is usually kind of disorganized and tangential, but never paranoid. She is usually compliant to current psychotropic regimen, in which she has been for years, with good response and not significant side effects. He recommends a psychiatric hospitalization for adjustment of psychotropics and stabilization paranoia. Patient denies the use of illicit drugs and alcohol. 08/25/2016: Patient seen for psychiatric reevaluation today, patient is found lying in her bed, she is very irritable, guarded and paranoid. She says that is for psychiatrists's fault she is here in the hospital and the reason she became unconscious "is due to the poison that you are giving me". Patient seems to be upset, but not agitated or hostile. At times becomes disorganized, but redirectable. She reports angry mood, but denies depressive symptoms such as hopelessness, helplessness, anhedonia, she denies suicidal and homicidal ideation, she denies visual and auditory hallucinations. Patient has been compliant with her medications, no aggressive behavior or agitation reported. 08/26/2016 patient seen today for psychiatric follow-up. She is found sitting in the floor. When asked why she sitting in the floor, her answer was that she was looking for something "but I don't know if acting what". Patient reports that she has been upset "these people are playing games with me", but she would not elaborate about this idea. Patient is very disorganized, tangential, but redirectable. She denies suicidal and homicidal ideation, she denies visual and auditory hallucinations. Even though patient is disorganized, seems to be paranoid towards staff, no agitation, hostility. Patient is oriented 3, compliant with medications. Review of Systems Constitutional: DENIES: Diaphoretic episodes, Fatigue, Fever, Weight gain, Weight loss, Chills, Dizziness, Change in appetite, Night Sweats Endocrine: DENIES: Abnorml menstrual pattern, Heat/cold intolerance, Polydipsia , Polyuria, Polyphagia Eyes: DENIES: Blurred vision, Diplopia, Eye inflammation, Eye pain, Vision loss , Photosensitivity, Double Vision Ears, nose, mouth, throat: DENIES: Tinnitus, Hearing loss, Vertigo, Nasal discharge, Oral lesions, Throat pain, Hoarseness, Ear Pain, Running Nose, Epistaxis, Sinus Pain, Toothache, Odynophagia Respiratory: DENIES: Apneas, Cough, Snoring, Wheezing, Hemoptysis, Sputum production, Shortness of breath Cardiovascular: DENIES: Chest pain, Palpitations, Syncope, Dyspnea on Exertion , PND, Lower Extremity Edema, Orthopnea, Claudication Gastrointestinal: DENIES: Abdominal pain, Black stools, Bloody stools, Constipation, Diarrhea, Nausea, Vomiting, Difficulty Swallowing, Anorexia Musculoskeletal: DENIES: Joint pain, Muscle aches, Stiffness, Joint Swelling, Back pain, Neck pain Integumentary: DENIES: Abnormal pigmentation, Pruritus, Rash, Nail changes, Breast masses, Breast skin changes, Nipple discharge Hematologic/lymphatic: DENIES: Bruising, Lymphadenopathy Immunologic/allergic: DENIES: Eczema, Urticaria Neurologic: DENIES: Abnormal gait, Headache, Localized weakness, Paresthesias, Seizures, Speech Problems, Tremor, Poor Balance Psychiatric: DENIES: Anxiety, Confusion, Mood changes, Depression, Hallucinations, Agitation, Suicidal Ideation, Homicidal Ideation, Delusions Past Psych History Violence risk - others (6 mos) Non- Violence risk - self (6 mos) None Substance Abuse History Drugs/Alcohol past 12 months Patient denies the use of alcohol and illicit drugs. She reports the use of about one pack of nicotine smoking cigarettes per day. Past Family Social History Coded Allergies: Cogentin (Verified Allergy, Unknown, 08/21/16) Haldol (Verified Allergy, Unknown, 08/21/16) Uncoded Allergies: butyrophenone (Allergy, Severe, 08/25/16) verified 08/25/16 Butrophenones (Allergy, Unknown, 10/09/15) Active Scripts Amlodipine 5 Mg Tab5 Mg PO DAILY #30 TAB Ref 0 Prov:Carlos Hope MD R1 08/25/16 Levofloxacin 750 Mg Bte326 Mg PO DAILY #7 TAB Ref 0 Prov:Carlos Hope MD R1 08/25/16 Fluphenazine 10 Mg Tab10 Mg PO TID #90 TAB Prov:Carlos Hope MD R1 08/25/16 Quetiapine 25 Mg Tab25 Mg PO BID #60 TAB Prov:Carlos Hope MD R1 08/25/16 Reported Medications Multiple Vitamin (Multi Vitamin)1 Tab Tab1 Tab PO DAILY 08/21/16 Omeprazole 20 Mg Tab20 Mg PO DAILY #30 TAB Ref 0 08/21/16 Metformin (Glucophage)1,000 Mg Tab1,000 Mg PO BIDPC #60 TAB Ref 0 With a meal 08/21/16 Meloxicam 15 Mg Tab15 Mg PO DAILY #30 TAB Ref 0 08/21/16 Lorazepam 1 Mg Tab1 Mg PO QID Ref 0 08/21/16 Levothyroxine 100 Mcg Pet022 Mcg PO DAILY #30 TAB Ref 0 08/21/16 Insulin Glargine Inj (Lantus Solostar Pen Inj)300 Unit/3 Ml Pen15 Units SQ DAILY Ref 0 08/21/16 Hydroxyzine Pamoate 50 Mg Cap50 Mg PO DAILY Ref 0 08/21/16 Glipizide ER 5 Mg Taber5 Mg PO DAILY #30 TAB Ref 0 Take with breakfast or first main meal of the day. 08/21/16 Gemfibrozil 600 Mg Vvv850 Mg PO BIDAC #60 TAB Ref 0 Take 30 minutes prior to breakfast and dinner. 08/21/16 Gabapentin 800 Mg Mdt028 Mg PO TID #90 TAB Ref 0 08/21/16 Folic Acid (Folate)1 Mg Tab1 Mg PO DAILY Ref 0 08/21/16 Ferrous Sulfate 325 Mg [id number] Mg PO BID #30 TAB Ref 0 08/21/16 Divalproex ER 500 Mg Pqx158 Mg PO QID #30 TAB Ref 0 08/21/16 Calcium Carbonate-Cholecalciferol (Calcium 500+D)500-200 Mg-Unit Tab1 Tab PO BID 08/21/16 Discontinued Reported Medications Trihexyphenidyl 5 Mg Tab5 Mg PO BID #60 TAB Ref 0 08/21/16 Fluphenazine 10 Mg Tab1 Tab PO TID 08/21/16 Amlodipine 2.5 Mg Tab2.5 Mg PO DAILY #30 TAB Ref 0 08/21/16 Hydroxyzine Pamoate 50 Mg Cap50 Mg PO BID 08/06/15 Trihexyphenidyl Hcl (Artane)5 Mg Tab5 Mg PO BID 08/06/15 Multiple Vitamin (Multivitamin)1 Tab Tab1 Tab PO DAILY 08/06/15 Omeprazole (Hm Omeprazole)20 Mg Tab20 Mg PO DAILY 08/06/15 Metformin 500 mg (Glucophage 500 mg)500 Mg Tab1,000 Mg PO BIDPC 08/06/15 Levothyroxine Sodium (Levothyroxine 50 mcg)50 Mcg Tab50 Mcg PO DAILY 08/06/15 Gemfibrozil 600 Mg Szq569 Mg PO BID 08/06/15 Gabapentin 400 Mg Qls332 Mg PO TID 08/06/15 Folic Acid (Folate)1 Mg Tab1 Mg PO DAILY 08/06/15 Ferrous Sulfate (Fe Tabs)325 Mg Zui470 Mg PO BID 08/06/15 Calcium Carbonate-Vitamin D (Calcium 500+D)500 + Tab1 Tab PO BID 08/06/15 Amlodipine Besylate 2.5 mg 2.5 Mg Tab2.5 Mg PO DAILY 08/06/15 Discontinued Scripts Lorazepam (Ativan)2 Mg Tab1 Mg PO Q6HR PRN (MODERATE TO SEVERE ANXIETY) #30 TAB Ref 0 Prov:Shawn Rendon MD 10/21/15 Insulin Detemir (Levemir) Inj5 Units SQ HS 30 Days Ref 0 Prov:Shawn Rendon MD 10/21/15 Insulin Detemir (Levemir) Inj4 Units SQ DAILYAC 30 Days Ref 0 Prov:Shawn Rendon MD 10/21/15 Guaifenesin (Mucinex 600 Mg Tab)600 Mg [id number] Mg PO BID 30 Days Ref 0 Prov:Shawn Rendon MD 10/21/15 Fluphenazine Hcl (Prolixin 10 Mg Tab)10 Mg Tab10 Mg PO HS 30 Days Ref 0 Prov:Shawn Rendon MD 10/21/15 Divalproex Sodium (Divalproex Sodium Dr)500 Mg [id number] Mg PO HS 30 Days Ref 0 Prov:Shawn Rendon MD 10/21/15 Current Medications Medications (Trade) Dose Ordered Sig/Leonard Route Start Time Stop Time Status Last Admin (Norvasc) 5 mg DAILY PO 08/25/16 15:00 08/26/16 09:00 (Depakote Er) 500 mg QID PO 08/25/16 18:00 08/26/16 09:00 (Ferrous Sulfate) 325 mg BID PO 08/25/16 16:00 08/26/16 09:00 (Prolixin) 10 mg TID PO 08/25/16 18:00 08/26/16 09:00 (Neurontin) 800 mg TID PO 08/25/16 18:00 08/26/16 09:00 (Lopid) 600 mg BIDAC PO 08/25/16 16:00 08/26/16 06:01 (Vistaril) 50 mg DAILY PO 08/25/16 16:00 08/26/16 09:00 (Levaquin) 750 mg DAILY@11 PO 08/26/16 11:00 (Mobic) 15 mg DAILY PO 08/25/16 16:00 08/26/16 09:00 (Glucophage) 1,000 mg BIDPC PO 08/25/16 18:00 08/26/16 09:00 (Theragran) 1 tab DAILY PO 08/25/16 16:00 08/26/16 09:00 (Levemir Inj) 15 units DAILY SQ 08/25/16 16:00 08/26/16 09:00 (Protonix) 20 mg DAILY PO 08/25/16 16:00 08/26/16 09:00 (Ativan) 1 mg Q6H PRN PO 08/25/16 17:00 (Ativan Inj) 1 mg Q6H PRN IM 08/25/16 17:00 (Ativan) 0.5 mg Q12H PRN PO 08/25/16 17:00 (Ativan Inj) 0.5 mg Q12H PRN IM 08/25/16 17:00 (Tylenol) 650 mg Q4H PRN PO 08/25/16 15:00 (Habitrol 21 Mg Patch.24 Hr) 1 patch DAILY T-DERMAL 08/25/16 15:00 (SEROquel) 50 mg BID@09,12 PO 08/26/16 09:00 08/26/16 09:00 Miscellaneous Information 1 DAILY T-DERMAL 08/26/16 09:00 Family History She denies psychiatric history Social History Patient was born and raised in [place], she has been living in a [facility] for 2 years, she is , but , mother of 2 kids, she is unemployed, supported by [employer], her highest level of education is 10th grade Physical Exam On physical exam there is no eyes abnormalities, no skin visible abnormality either, no movement disorder, no EPS, no tremors, no stiffness, no motoric agitation or psychomotor retardation. Vital Signs Vital Signs Date Time Temp Pulse Resp B/P Pulse Ox O2 Delivery O2 Flow Rate FiO2 08/26/16 05:44 98.1 107 18 148/89 96 I/O 08/25/16 08/25/16 08/26/16 08:00 16:00 00:00 Intake Total 360 ml Balance 360 ml Lab Results Valproate levels is 63 Mental Status Examination Appearance woman, disheveled, hospital pajamas, older than his stated age, disorganized, but cooperative Speech: Rapid Orientation: x3 Memory: Unremarkable Thought Process: Loose Association, Tangential Thought Content: Paranoid Hallucination Type: None Attention and Concentration: Good Suicidal Ideation: No Previous Suicide Attempts: No Homicidal Ideation: No Previous Homicide Attempts: No Insight: Fair Affect: Oppositional Mood: Angry Motor Activity: Normal gait Assessment & Plan Problem List: (1) Schizophrenia, paranoid, chronic with acute exacerbation Assessment & Plan: The patient is a 56-year-old woman with extensive psychiatric history of paranoid schizophrenia, multiple psychiatric hospitalizations, receiving outpatient care by visiting psychiatrist/nurse practitioner Jamin Figueroa in her [facility], she has been stable on Depakote 500 mg twice a day, fluphenazine 10 mg BId, Artane 5 mg twice a day , her last psychiatric hospitalization was here at [facility], October 2015, she was under the care of Dr. Rendon, documentation was reviewed, she doesn't have any previous suicidal attempts, medical history of diabetes mellitus or hypertension, who was brought to the hospital due to altered mental status and agitation, she was found to have significant UTI and sepsis with Escherichia coli. Patient was consulted to psychiatry due to disorganized behavior, paranoia and agitation. On psychiatric evaluation patient presents resistant, irritable, oppositional, with marked paranoia against staff and psychiatrist in her residential facility , agitation, restlessness. She also presents disorganized and tangential speech , which is usually redirectable, no aggressive behavior observed.. Patient denies suicidal or homicidal ideation, she denies visual and auditory hallucinations. As per discussion with outpatient nurse practitioner patient seems to be decompensated and having an acute exacerbation of schizophrenia needs psychiatric admission for stabilization of symptoms and medication adjustment. Will continue Depakote 500 mg twice a day, will continue fluphenazine 10 mg twice a day, will increase Seroquel to 100 mg at bedtime. 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 Extensive psycho education, supportive motivation provided. We'll consult psychiatry for second opinion. Will consult hospitalist to continue medical treatment of underlying medical conditions. ICD Code: F20.0 Assessment & Plan Estimated LOS: Oswald Hall MD Aug 26, 2016 11:42
--- NOTE | 2016-08-26 13:38 | PD.CONS ---
Provisional Diagnosis Admission Date Aug 25, 2016 at 12:45 [place] I. Chronic paranoid schizophrenia Hunt[place] II. Deferred [place] III. UTI [place] IV. Extensive history of chronic mental illness, Hunt[place] V. 40 History of Present Illness Service Psychiatry Consult Requested By Primary Care Physician Unknown HPI 08/24/16: The patient is a 56-year-old woman, domiciled in a [facility], single, unemployed, supported by [facility], with extensive psychiatric history of paranoid schizophrenia, multiple psychiatric hospitalizations, receiving outpatient care by visiting psychiatrist/nurse practitioner Jamin Figueroa in her [facility], she has been stable on Depakote 500 mg twice a day, fluphenazine and milligram twice a day, Artane 5 mg twice a day , her last psychiatric hospitalization was here at [place], October 2015, she was under the care of Dr. Rendon, documentation was reviewed, she doesn't have any previous suicidal attempts, medical history of diabetes mellitus or hypertension, who was brought to the hospital due to altered mental status and agitation, she was found to have significant UTI and sepsis with Escherichia coli. Patient was consulted to psychiatry due to disorganized behavior, paranoia and agitation. On psychiatric evaluation today patient is found in her bed, she is irritable, superficially cooperative. When I presented myself as a psychiatrist, she became verbally hostile stating that I am trying to poison her with the psychiatric medication she is taking. She says that the reason she is here in the hospital is because her psychiatrist in [facility] has been prescribing her with medication that are poisoning her body. Patient says that she has been trying to leave this place, "because I see people coming and going, they are never the same people and I don't trust them". Patient reports angry mood, increased anxiety, poor sleep, but denies depressive symptoms, denies anhedonia, denies hopelessness, denies helplessness, denies suicidal and homicidal ideation. Patient denies visual and auditory hallucinations at this moment. Patient is fully oriented 3, without any attention deficit, without fluctuation of consciousness and not gross cognitive impairment observed. However patient is to oppositional and resistant to the evaluation to perform a full cognitive evaluation. At times during the evaluation patient become disorganized making not much sense, but she is redirectable. Collateral information from her psychiatrist nurse practitioner, Jamin Figueroa, was obtained, he says that the patient was at baseline last time he saw her last week. Patient is usually kind of disorganized and tangential, but never paranoid. She is usually compliant to current psychotropic regimen, in which she has been for years, with good response and not significant side effects. He recommends a psychiatric hospitalization for adjustment of psychotropics and stabilization paranoia. Patient denies the use of illicit drugs and alcohol. 08/25/2016: Patient seen for psychiatric reevaluation today, patient is found lying in her bed, she is very irritable, guarded and paranoid. She says that is for psychiatrists's fault she is here in the hospital and the reason she became unconscious "is due to the poison that you are giving me". Patient seems to be upset, but not agitated or hostile. At times becomes disorganized, but redirectable. She reports angry mood, but denies depressive symptoms such as hopelessness, helplessness, anhedonia, she denies suicidal and homicidal ideation, she denies visual and auditory hallucinations. Patient has been compliant with her medications, no aggressive behavior or agitation reported. 08/26/2016 patient seen today for psychiatric follow-up. She is found sitting in the floor. When asked why she sitting in the floor, her answer was that she was looking for something "but I don't know if acting what". Patient reports that she has been upset "these people are playing games with me", but she would not elaborate about this idea. Patient is very disorganized, tangential, but redirectable. She denies suicidal and homicidal ideation, she denies visual and auditory hallucinations. Even though patient is disorganized, seems to be paranoid towards staff, no agitation, hostility. Patient is oriented 3, compliant with medications. 08/26/16 Above notes dictated by Dr. Rossi reviewed and agreed with. Patient is a 56 -year-old female admitted to Dr. Rossi service under the [place] act. Patient seen by me with RN patient confused disorganized irritable appears to be responding to internal stimuli. Patient showing no insight into her problems. Dr. Rossi has signed first opinion petition supporting [place] act. I agree. Patient meets criteria for involuntary psychiatric hospitalization under the [place] act. Thus I will cosign second opinion petition supporting [place] act Past Family Social History Coded Allergies: Cogentin (Verified Allergy, Unknown, 08/21/16) Haldol (Verified Allergy, Unknown, 08/21/16) Uncoded Allergies: butyrophenone (Allergy, Severe, 08/25/16) verified 08/25/16 Butrophenones (Allergy, Unknown, 10/09/15) Active Scripts Amlodipine 5 Mg Tab5 Mg PO DAILY #30 TAB Ref 0 Prov:Carlos Hope MD R1 08/25/16 Levofloxacin 750 Mg [id number] Mg PO DAILY #7 TAB Ref 0 Prov:Carlos Hope MD R1 08/25/16 Fluphenazine 10 Mg Tab10 Mg PO TID #90 TAB Prov:Carlos Hope MD R1 08/25/16 Quetiapine 25 Mg Tab25 Mg PO BID #60 TAB Prov:Carlos Hope MD R1 08/25/16 Reported Medications Multiple Vitamin (Multi Vitamin)1 Tab Tab1 Tab PO DAILY 08/21/16 Omeprazole 20 Mg Tab20 Mg PO DAILY #30 TAB Ref 0 08/21/16 Metformin (Glucophage)1,000 Mg Tab1,000 Mg PO BIDPC #60 TAB Ref 0 With a meal 08/21/16 Meloxicam 15 Mg Tab15 Mg PO DAILY #30 TAB Ref 0 08/21/16 Lorazepam 1 Mg Tab1 Mg PO QID Ref 0 08/21/16 Levothyroxine 100 Mcg [id number] Mcg PO DAILY #30 TAB Ref 0 08/21/16 Insulin Glargine Inj (Lantus Solostar Pen Inj)300 Unit/3 Ml Pen15 Units SQ DAILY Ref 0 08/21/16 Hydroxyzine Pamoate 50 Mg Cap50 Mg PO DAILY Ref 0 08/21/16 Glipizide ER 5 Mg Taber5 Mg PO DAILY #30 TAB Ref 0 Take with breakfast or first main meal of the day. 08/21/16 Gemfibrozil 600 Mg Pye630 Mg PO BIDAC #60 TAB Ref 0 Take 30 minutes prior to breakfast and dinner. 08/21/16 Gabapentin 800 Mg [id number] Mg PO TID #90 TAB Ref 0 08/21/16 Folic Acid (Folate)1 Mg Tab1 Mg PO DAILY Ref 0 08/21/16 Ferrous Sulfate 325 Mg [id number] Mg PO BID #30 TAB Ref 0 08/21/16 Divalproex ER 500 Mg Dkj005 Mg PO QID #30 TAB Ref 0 08/21/16 Calcium Carbonate-Cholecalciferol (Calcium 500+D)500-200 Mg-Unit Tab1 Tab PO BID 08/21/16 Discontinued Reported Medications Trihexyphenidyl 5 Mg Tab5 Mg PO BID #60 TAB Ref 0 08/21/16 Fluphenazine 10 Mg Tab1 Tab PO TID 08/21/16 Amlodipine 2.5 Mg Tab2.5 Mg PO DAILY #30 TAB Ref 0 08/21/16 Hydroxyzine Pamoate 50 Mg Cap50 Mg PO BID 08/06/15 Trihexyphenidyl Hcl (Artane)5 Mg Tab5 Mg PO BID 08/06/15 Multiple Vitamin (Multivitamin)1 Tab Tab1 Tab PO DAILY 08/06/15 Omeprazole (Hm Omeprazole)20 Mg Tab20 Mg PO DAILY 08/06/15 Metformin 500 mg (Glucophage 500 mg)500 Mg Tab1,000 Mg PO BIDPC 08/06/15 Levothyroxine Sodium (Levothyroxine 50 mcg)50 Mcg Tab50 Mcg PO DAILY 08/06/15 Gemfibrozil 600 Mg Icj470 Mg PO BID 08/06/15 Gabapentin 400 Mg Dqg324 Mg PO TID 08/06/15 Folic Acid (Folate)1 Mg Tab1 Mg PO DAILY 08/06/15 Ferrous Sulfate (Fe Tabs)325 Mg Wsb500 Mg PO BID 08/06/15 Calcium Carbonate-Vitamin D (Calcium 500+D)500 + Tab1 Tab PO BID 08/06/15 Amlodipine Besylate 2.5 mg 2.5 Mg Tab2.5 Mg PO DAILY 08/06/15 Discontinued Scripts Lorazepam (Ativan)2 Mg Tab1 Mg PO Q6HR PRN (MODERATE TO SEVERE ANXIETY) #30 TAB Ref 0 Prov:Shawn Rendon MD 10/21/15 Insulin Detemir (Levemir) Inj5 Units SQ HS 30 Days Ref 0 Prov:Shawn Rendon MD 10/21/15 Insulin Detemir (Levemir) Inj4 Units SQ DAILYAC 30 Days Ref 0 Prov:Shawn Rendon MD 10/21/15 Guaifenesin (Mucinex 600 Mg Tab)600 Mg [id number] Mg PO BID 30 Days Ref 0 Prov:Shawn Rendon MD 10/21/15 Fluphenazine Hcl (Prolixin 10 Mg Tab)10 Mg Tab10 Mg PO HS 30 Days Ref 0 Prov:Shawn Rendon MD 10/21/15 Divalproex Sodium (Divalproex Sodium Dr)500 Mg [id number] Mg PO HS 30 Days Ref 0 Prov:Shawn Rendon MD 10/21/15 Current Medications Medications (Trade) Dose Ordered Sig/Leonard Route Start Time Stop Time Status Last Admin (Norvasc) 5 mg DAILY PO 08/25/16 15:00 08/26/16 09:00 (Depakote Er) 500 mg QID PO 08/25/16 18:00 08/26/16 12:08 (Ferrous Sulfate) 325 mg BID PO 08/25/16 16:00 08/26/16 09:00 (Prolixin) 10 mg TID PO 08/25/16 18:00 08/26/16 12:08 (Neurontin) 800 mg TID PO 08/25/16 18:00 08/26/16 12:08 (Lopid) 600 mg BIDAC PO 08/25/16 16:00 08/26/16 06:01 (Vistaril) 50 mg DAILY PO 08/25/16 16:00 08/26/16 09:00 (Levaquin) 750 mg DAILY@11 PO 08/26/16 11:00 08/26/16 11:00 (Mobic) 15 mg DAILY PO 08/25/16 16:00 08/26/16 09:00 (Glucophage) 1,000 mg BIDPC PO 08/25/16 18:00 08/26/16 09:00 (Theragran) 1 tab DAILY PO 08/25/16 16:00 08/26/16 09:00 (Levemir Inj) 15 units DAILY SQ 08/25/16 16:00 08/26/16 09:00 (Protonix) 20 mg DAILY PO 08/25/16 16:00 08/26/16 09:00 (Ativan) 1 mg Q6H PRN PO 08/25/16 17:00 (Ativan Inj) 1 mg Q6H PRN IM 08/25/16 17:00 (Ativan) 0.5 mg Q12H PRN PO 08/25/16 17:00 (Ativan Inj) 0.5 mg Q12H PRN IM 08/25/16 17:00 (Tylenol) 650 mg Q4H PRN PO 08/25/16 15:00 (Habitrol 21 Mg Patch.24 Hr) 1 patch DAILY T-DERMAL 08/25/16 15:00 Miscellaneous Information 1 DAILY T-DERMAL 08/26/16 09:00 (SEROquel) 100 mg HS PO 08/26/16 21:00 Physical Exam Vital Signs Vital Signs Date Time Temp Pulse Resp B/P Pulse Ox O2 Delivery O2 Flow Rate FiO2 08/26/16 05:44 98.1 107 18 148/89 96 I/O 08/25/16 08/25/16 08/26/16 08:00 16:00 00:00 Intake Total 360 ml Balance 360 ml Mental Status Examination Speech: Rapid Orientation: x3 Memory: Unremarkable Thought Process: Loose Association, Tangential Thought Content: Paranoid Hallucination Type: None Attention and Concentration: Good Suicidal Ideation: No Previous Suicide Attempts: No Homicidal Ideation: No Previous Homicide Attempts: No Insight: Fair Affect: Oppositional Mood: Angry Motor Activity: Normal gait Assessment & Plan Problem List: (1) Schizophrenia, paranoid, chronic with acute exacerbation ICD Code: F20.0 Assessment & Plan Estimated LOS: Chan Day MD Aug 26, 2016 13:38
[2016-08-26 18:00] VITALS: PULSE 61; RESP 18; TEMP 97.8; O2SAT 94
[2016-08-26 19:58] VITALS: BP 160/84; PULSE 94; RESP 18; O2SAT 96
[2016-08-26] MEDS ORDERED: QUEtiapine FUMARATE 100 MG TAB PO SCH (21:00)
[2016-08-27 05:58] VITALS: BP 156/87; PULSE 78; RESP 18; TEMP 97.7; O2SAT 92
[2016-08-27] MEDS: GEMFIBROZIL 600 MG TAB PO SCH ×2 (06:00→16:00)
[2016-08-27] MEDS: INSULIN DETEMIR 100 UNITS/ML VIAL SQ SCH (09:00)
[2016-08-27] MEDS: NICOTINE 21 MG/24 HR PATCH T-DERMAL SCH (09:00)
[2016-08-27] MEDS: REMOVE OLD PATCH T-DERMAL SCH (09:00)
[2016-08-27] MEDS: MULTIVITAMIN TAB PO SCH (09:19)
[2016-08-27] MEDS: GABAPENTIN 400 MG CAP PO SCH ×3 (09:20→17:04)
[2016-08-27] MEDS: DIVALPROEX SODIUM E.R. 500 MG TAB PO SCH ×4 (09:20→20:21)
[2016-08-27] MEDS: MELOXICAM 15 MG TAB PO SCH (09:20)
[2016-08-27] MEDS: amLODIPine BESYLATE 5 MG TAB PO SCH (09:20)
[2016-08-27] MEDS: FERROUS SULFATE 325 MG (65 MG ELEMENTAL IRON) TAB PO SCH ×2 (09:20→20:21)
[2016-08-27] MEDS: metFORMIN HCL 500 MG TAB PO SCH ×2 (09:20→17:04)
[2016-08-27] MEDS: PANTOPRAZOLE SOD 20 MG DELAYED RELEASE TAB PO SCH (09:20)
--- NOTE | 2016-08-27 10:51 | HHI.PYPN ---
Subjective Remarks Patient seen for psychiatric reevaluation today, patient is found sleeping in her back, but easily arousable, patient reports she is upset "because these people don't want to leave me alone", she would not elaborate about what are "these people", she seems to be irritable, internally preoccupied, guarded and paranoid. She reports angry mood, she denies suicidal and homicidal ideation, she denies visual and auditory hallucinations. On the unit patient has been isolated, participating poorly in group activities and with poor interaction with staff and peers, she has been fully compliant with her medications, she is fully oriented 3. Review of Systems Other No somatic complaints Objective Alert: Yes [place]: Person, Place, Date Mood: Oppositional Affect: Other (irritable) Memory Intact: Comment (no formally assessed) Hallucinations: Other (she denies) Delusions: Yes Delusion Type: Paranoid, Other Suicidal: Ideation (she denies) Homicidal: Ideation (she denies) Insight/Judgment Poor Vitals/IOs Vital Signs Date Time Temp Pulse Resp B/P Pulse Ox O2 Delivery O2 Flow Rate FiO2 08/27/16 05:58 97.7 78 18 156/87 92 Intake and Output 08/26/16 08/26/16 08/27/16 08:00 16:00 00:00 Intake Total 880 ml 500 ml 1040 ml Balance 880 ml 500 ml 1040 ml Assessment & Plan Problem List: (1) Schizophrenia, paranoid, chronic with acute exacerbation Assessment & Plan: Patient continues to be acutely psychotic, very paranoid, guarded, internally preoccupied, at times hostile and agitated, but redirectable. Will increase Seroquel to 200 mg at bedtime to help with psychosis. ICD Code: F20.0 Assessment & Plan Estimated LOS: days Justification for Cont. Inpt. Patient is acutely psychotic and needs to continue psychiatric hospitalization for stabilization and medication adjustment Oswald Flood MD Aug 27, 2016 10:51
[2016-08-27] MEDS: LEVOFLOXACIN 750 MG TAB PO SCH (11:00)
[2016-08-27 18:29] VITALS: BP 145/87; PULSE 83; RESP 18; TEMP 98.5; O2SAT 95
[2016-08-27] MEDS ORDERED: QUEtiapine FUMARATE 200 MG TAB PO SCH (21:00)
[2016-08-28 06:20] VITALS: BP 141/90; PULSE 82; RESP 14; TEMP 97.7; O2SAT 95
[2016-08-28] MEDS: GEMFIBROZIL 600 MG TAB PO SCH ×2 (06:26→15:21)
[2016-08-28] MEDS: INSULIN DETEMIR 100 UNITS/ML VIAL SQ SCH (09:00)
[2016-08-28] MEDS: REMOVE OLD PATCH T-DERMAL SCH (09:00)
[2016-08-28] MEDS: NICOTINE 21 MG/24 HR PATCH T-DERMAL SCH (09:00)
[2016-08-28] MEDS: metFORMIN HCL 500 MG TAB PO SCH ×2 (09:31→17:25)
[2016-08-28] MEDS: MELOXICAM 15 MG TAB PO SCH (09:31)
[2016-08-28] MEDS: FERROUS SULFATE 325 MG (65 MG ELEMENTAL IRON) TAB PO SCH ×2 (09:31→20:19)
[2016-08-28] MEDS: amLODIPine BESYLATE 5 MG TAB PO SCH (09:31)
[2016-08-28] MEDS: PANTOPRAZOLE SOD 20 MG DELAYED RELEASE TAB PO SCH (09:31)
[2016-08-28] MEDS: DIVALPROEX SODIUM E.R. 500 MG TAB PO SCH ×4 (09:31→20:19)
[2016-08-28] MEDS: GABAPENTIN 400 MG CAP PO SCH ×3 (09:31→17:25)
[2016-08-28] MEDS: MULTIVITAMIN TAB PO SCH (09:31)
[2016-08-28] MEDS: LEVOFLOXACIN 750 MG TAB PO SCH (11:53)
--- NOTE | 2016-08-28 12:10 | HHI.PYPN ---
Subjective Remarks Patient seen for psychiatric reevaluation today along with nurse in charge Casey , patient continues to be disorganized, paranoid, today she thinks that I have been trying to poisoning her. However, she is redirectable. In the unit she has been compliant with medications, without any episodes of aggressive behavior or agitation reported. At times she has been disorganized, talking to herself, and internally preoccupied. I spoke yesterday with Mercedes, case technician in her assisted living facility, who came to visit the patient and expressed her concern about her disorganized behavior and increased paranoia. She says the patient is not a baseline and needs more stabilization. Review of Systems Other No somatic complaints Objective Alert: Yes [place]: Person, Place, Date Mood: Oppositional Affect: Other (irritable) Memory Intact: Comment (no formally assessed) Hallucinations: Other (she denies) Delusions: Yes Delusion Type: Paranoid, Other Suicidal: Ideation (she denies) Homicidal: Ideation (she denies) Insight/Judgment Poor Vitals/IOs Vital Signs Date Time Temp Pulse Resp B/P Pulse Ox O2 Delivery O2 Flow Rate FiO2 08/28/16 06:20 97.7 82 14 141/90 95 Intake and Output 08/27/16 08/27/16 08/28/16 08:00 16:00 00:00 Intake Total 210 ml 480 ml Balance 210 ml 480 ml Assessment & Plan Problem List: (1) Schizophrenia, paranoid, chronic with acute exacerbation Assessment & Plan: Patient continues to be disorganized, paranoid, internally preoccupied, will increase Seroquel to 300 mg at bedtime. ICD Code: F20.0 Assessment & Plan Estimated LOS: days Justification for Cont. Inpt. Patient is acutely psychotic, needs to continue psychiatric hospitalization for stabilization Oswald Flood MD Aug 28, 2016 12:10
[2016-08-28 18:56] VITALS: BP 137/80; PULSE 85; RESP 18; TEMP 98; O2SAT 95
[2016-08-28] MEDS: ACETAMINOPHEN 325 MG TAB PO PRN (20:19)
[2016-08-28] MEDS: QUEtiapine FUMARATE 300 MG TAB PO SCH (20:22)
[2016-08-28 23:30] VITALS: BP 112/82; PULSE 89; RESP 16; TEMP 97.4; O2SAT 96
[2016-08-29 00:35] VITALS: BP 114/71; PULSE 80; RESP 16; TEMP 97.5; O2SAT 95
[2016-08-29] MEDS: GEMFIBROZIL 600 MG TAB PO SCH ×2 (06:04→16:00)
[2016-08-29 06:08] VITALS: BP 119/70; PULSE 82; RESP 16; TEMP 97.5; O2SAT 96
[2016-08-29 08:25] VITALS: BP 112/88; PULSE 83; RESP 18; TEMP 98.1; O2SAT 96
[2016-08-29] MEDS: amLODIPine BESYLATE 5 MG TAB PO SCH (08:31)
[2016-08-29] MEDS: GABAPENTIN 400 MG CAP PO SCH ×3 (08:31→18:00)
[2016-08-29] MEDS: MELOXICAM 15 MG TAB PO SCH (08:31)
[2016-08-29] MEDS: DIVALPROEX SODIUM E.R. 500 MG TAB PO SCH ×4 (08:31→20:22)
[2016-08-29] MEDS: MULTIVITAMIN TAB PO SCH (08:31)
[2016-08-29] MEDS: PANTOPRAZOLE SOD 20 MG DELAYED RELEASE TAB PO SCH (08:31)
[2016-08-29] MEDS: metFORMIN HCL 500 MG TAB PO SCH ×2 (08:32→18:00)
[2016-08-29] MEDS: FERROUS SULFATE 325 MG (65 MG ELEMENTAL IRON) TAB PO SCH ×2 (08:32→20:22)
[2016-08-29] MEDS: INSULIN DETEMIR 100 UNITS/ML VIAL SQ SCH (08:33)
[2016-08-29] MEDS: REMOVE OLD PATCH T-DERMAL SCH (08:34)
[2016-08-29] MEDS: NICOTINE 21 MG/24 HR PATCH T-DERMAL SCH (08:34)
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
[2016-08-29] MEDS: LEVOFLOXACIN 750 MG TAB PO SCH (11:00)
[2016-08-29 11:02] VITALS: BP_SYST 115; BP_SYST 130; BP_SYST 99; BP_DIAS 64; BP_DIAS 69; BP_DIAS 70; PULSE 101
--- NOTE | 2016-08-29 16:57 | HHI.PYPN ---
Subjective Remarks Patient continues to be disorganized and paranoid. She is easily agitated today and has required when necessary medication to help her maintain control. Otherwise she would be a danger to self and others because the agitation is rather great. Review of Systems ROS Limitations: Clinical Condition Objective Alert: Yes [place]: Person, Place Mood: Angry, Oppositional Affect: Labile, Other (irritable) Memory Intact: Comment (no formally assessed) Hallucinations: Other (she denies) Delusions: Yes Delusion Type: Paranoid, Other Suicidal: Ideation (she denies) Homicidal: Ideation (she denies) Insight/Judgment Impaired Vitals/IOs Vital Signs Date Time Temp Pulse Resp B/P Pulse Ox O2 Delivery O2 Flow Rate FiO2 08/29/16 11:02 101 130/70 115/69 99/64 08/29/16 08:25 98.1 18 96 Intake and Output 08/28/16 08/28/16 08/29/16 08:00 16:00 00:00 Intake Total 600 ml 240 ml Balance 600 ml 240 ml Assessment & Plan Problem List: (1) Schizophrenia, paranoid, chronic with acute exacerbation ICD Code: F20.0 Assessment & Plan Estimated LOS: 7 days patient needs more time stabilizing on antipsychotic and mood stabilizing medication. Justification for Cont. Inpt. Patient is psychotic and threatening. Asif Salas MD Aug 29, 2016 16:57
[2016-08-29] MEDS: QUEtiapine FUMARATE 300 MG TAB PO SCH (20:22)
[2016-08-30 04:02] VITALS: BP 119/62; PULSE 74; RESP 16; TEMP 97.4; O2SAT 94
[2016-08-30] MEDS: GEMFIBROZIL 600 MG TAB PO SCH ×2 (06:21→16:00)
[2016-08-30] MEDS: MELOXICAM 15 MG TAB PO SCH (08:17)
[2016-08-30] MEDS: MULTIVITAMIN TAB PO SCH (08:18)
[2016-08-30] MEDS: DIVALPROEX SODIUM E.R. 500 MG TAB PO SCH ×4 (08:18→21:46)
[2016-08-30] MEDS: GABAPENTIN 400 MG CAP PO SCH (08:18)
[2016-08-30] MEDS: PANTOPRAZOLE SOD 20 MG DELAYED RELEASE TAB PO SCH (08:18)
[2016-08-30] MEDS: FERROUS SULFATE 325 MG (65 MG ELEMENTAL IRON) TAB PO SCH ×2 (08:18→21:46)
[2016-08-30] MEDS: amLODIPine BESYLATE 5 MG TAB PO SCH (08:18)
[2016-08-30] MEDS: metFORMIN HCL 500 MG TAB PO SCH ×2 (08:18→17:58)
[2016-08-30] MEDS: NICOTINE 21 MG/24 HR PATCH T-DERMAL SCH (08:19)
[2016-08-30] MEDS: REMOVE OLD PATCH T-DERMAL SCH (08:19)
[2016-08-30] MEDS: INSULIN DETEMIR 100 UNITS/ML VIAL SQ SCH (09:00)
--- NOTE | 2016-08-30 10:27 | HHI.PYPN ---
Subjective Remarks No significant change. Patient continues to be paranoid. Review of Systems ROS Limitations: Clinical Condition Objective Alert: Yes [place]: Person, Place Mood: Angry, Oppositional Affect: Labile, Other (irritable) Memory Intact: Comment (no formally assessed) Hallucinations: Other (she denies) Delusions: Yes Delusion Type: Paranoid, Other Suicidal: Ideation (she denies) Homicidal: Ideation (she denies) Insight/Judgment Remains impaired. Vitals/IOs Vital Signs Date Time Temp Pulse Resp B/P Pulse Ox O2 Delivery O2 Flow Rate FiO2 08/30/16 04:02 97.4 74 16 119/62 94 Intake and Output 08/29/16 08/29/16 08/30/16 08:00 16:00 00:00 Intake Total 360 ml 360 ml Balance 360 ml 360 ml Assessment & Plan Problem List: (1) Schizophrenia, paranoid, chronic with acute exacerbation ICD Code: F20.0 Assessment & Plan Estimated LOS: 7 days patient continues to need more time on antipsychotic medicine. Justification for Cont. Inpt. Continues to be psychotic and would be dangerous at lower level of care. Asif Salas MD Aug 30, 2016 10:27
[2016-08-30] MEDS: LEVOFLOXACIN 750 MG TAB PO SCH (11:00)
[2016-08-30] MEDS: GABAPENTIN 300 MG CAP PO SCH ×2 (12:34→17:58)
--- NOTE | 2016-08-30 13:58 | HHI.PR ---
Subjective Remarks No further recurrence of falls. Etiology appears to be related to orthostatic hypotension. I have held her amlodipine and decreased her gabapentin. Will repeat orthostatic BP check tomorrow. Objective Vital Signs Date Time Temp Pulse Resp B/P Pulse Ox O2 Delivery O2 Flow Rate FiO2 08/30/16 04:02 97.4 74 16 119/62 94 I/O 08/29/16 08/29/16 08/29/16 08/30/16 08/30/16 08/30/16 07:00 15:00 23:00 07:00 15:00 23:00 Intake Total 480 ml 360 ml Balance 480 ml 360 ml Intake Oral 480 ml 360 ml # Voids 0 Objective Remarks GENERAL: NAD SKIN: Warm and dry. HEAD: Normocephalic. EYES: No scleral icterus. No injection or drainage. NECK: Supple, trachea midline. No JVD or lymphadenopathy. CARDIOVASCULAR: Regular rate and rhythm without murmurs, gallops, or rubs. RESPIRATORY: Breath sounds equal bilaterally. No accessory muscle use. GASTROINTESTINAL: Abdomen soft, non-tender, nondistended. MUSCULOSKELETAL: No cyanosis, or edema. BACK: Nontender without obvious deformity. No CVA tenderness. Medications and IVs Administered Medications Medications (Trade) Dose Ordered Sig/Leonard Route PRN Reason Start Time Stop Time Status Last Admin Dose Admin Divalproex Sodium (Depakote Er) 500 mg QID PO 08/25/16 18:00 08/30/16 12:34 Ferrous Sulfate (Ferrous Sulfate) 325 mg BID PO 08/25/16 16:00 08/30/16 08:18 Fluphenazine HCl (Prolixin) 10 mg TID PO 08/25/16 18:00 08/30/16 12:34 Gemfibrozil (Lopid) 600 mg BIDAC PO 08/25/16 16:00 08/30/16 06:21 Hydroxyzine Pamoate (Vistaril) 50 mg DAILY PO 08/25/16 16:00 08/30/16 08:18 Levofloxacin (Levaquin) 750 mg DAILY@11 PO 08/26/16 11:00 08/30/16 11:00 Meloxicam (Mobic) 15 mg DAILY PO 08/25/16 16:00 08/30/16 08:17 Metformin HCl (Glucophage) 1,000 mg BIDPC PO 08/25/16 18:00 08/30/16 08:18 Multivitamins (Theragran) 1 tab DAILY PO 08/25/16 16:00 08/30/16 08:18 Insulin Detemir (Levemir Inj) 15 units DAILY SQ 08/25/16 16:00 08/30/16 09:00 Pantoprazole Sodium (Protonix) 20 mg DAILY PO 08/25/16 16:00 08/30/16 08:18 Lorazepam (Ativan) 1 mg Q6H PRN PO SEE LABEL COMMENTS 08/25/16 17:00 08/28/16 15:21 Acetaminophen (Tylenol) 650 mg Q4H PRN PO Pain 1-5 or Temp >101F 08/25/16 15:00 08/28/16 20:19 Quetiapine Fumarate (SEROquel) 300 mg HS PO 08/28/16 21:00 08/29/16 20:22 Gabapentin (Neurontin) 300 mg TID PO 08/30/16 13:00 08/30/16 12:34 A/P Problem List: (1) Orthostatic hypotension ICD Code: I95.1 (2) Fall ICD Code: W19.XXXA Assessment and Plan drop in >10mmHg in position changes both of supine to sitting and in sitting to standing. Stop Amlodipine Decrease gabapentin Repeat orthostatic check tomorrow to see if treatment change helps Patient instructed in measures to take to avoid orthostasis events (gradual position changes and caution with beginning of ambulations up to 1 minute. El Mcginnis MD Aug 30, 2016 13:58
[2016-08-30 18:00] VITALS: BP 146/82; PULSE 78; RESP 16; TEMP 97.9; O2SAT 95
[2016-08-30] MEDS: QUEtiapine FUMARATE 300 MG TAB PO SCH (21:46)
[2016-08-30] MEDS: DOCUSATE SODIUM 100 MG CAP PO SCH (21:46)
[2016-08-31 04:26] VITALS: BP 166/83; PULSE 82; RESP 17; TEMP 97.6; O2SAT 94
[2016-08-31] MEDS: GEMFIBROZIL 600 MG TAB PO SCH ×2 (06:36→16:20)
[2016-08-31] MEDS: REMOVE OLD PATCH T-DERMAL SCH (09:00)
[2016-08-31] MEDS: INSULIN DETEMIR 100 UNITS/ML VIAL SQ SCH (09:00)
[2016-08-31] MEDS: NICOTINE 21 MG/24 HR PATCH T-DERMAL SCH (09:00)
[2016-08-31] MEDS: MELOXICAM 15 MG TAB PO SCH (09:45)
[2016-08-31] MEDS: metFORMIN HCL 500 MG TAB PO SCH ×2 (09:45→18:37)
[2016-08-31] MEDS: MULTIVITAMIN TAB PO SCH (09:45)
[2016-08-31] MEDS: GABAPENTIN 300 MG CAP PO SCH ×3 (09:45→18:37)
[2016-08-31] MEDS: DOCUSATE SODIUM 100 MG CAP PO SCH ×2 (09:45→21:20)
[2016-08-31] MEDS: DIVALPROEX SODIUM E.R. 500 MG TAB PO SCH ×4 (09:45→21:20)
[2016-08-31] MEDS: PANTOPRAZOLE SOD 20 MG DELAYED RELEASE TAB PO SCH (09:45)
[2016-08-31] MEDS: FERROUS SULFATE 325 MG (65 MG ELEMENTAL IRON) TAB PO SCH ×2 (09:46→21:20)
[2016-08-31] MEDS: LEVOFLOXACIN 750 MG TAB PO SCH (12:39)
[2016-08-31] MEDS: ACETAMINOPHEN 325 MG TAB PO PRN (12:43)
--- NOTE | 2016-08-31 13:59 | HHI.PYPN ---
Subjective Remarks Pt seen and discussed with staff. Pt remains paranoid. She expresses fear that a fan located in building across the street will come through her window. She is tolerating medication without side effects. Staff report that lability is decreasing and pt has been engaged in unit activities. She denies SI/HI. Objective Alert: Yes [place]: Person, Place Mood: Anxious Affect: Labile (mild) Memory Intact: Comment (no formally assessed) Hallucinations: Other (she denies) Delusions: Yes Delusion Type: Paranoid, Other Suicidal: Ideation (she denies) Homicidal: Ideation (she denies) Insight/Judgment limited Vitals/IOs Vital Signs Date Time Temp Pulse Resp B/P Pulse Ox O2 Delivery O2 Flow Rate FiO2 08/31/16 04:26 97.6 82 17 166/83 94 Intake and Output 08/30/16 08/30/16 08/31/16 08:00 16:00 00:00 Intake Total 840 ml Balance 840 ml Assessment & Plan Problem List: (1) Schizophrenia, paranoid, chronic with acute exacerbation ICD Code: F20.0 Assessment & Plan Pt is improving. Continue current tx plan. Estimated LOS: days Justification for Cont. Inpt. 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
[2016-08-31 16:29] VITALS: BP 141/94; PULSE 87
--- NOTE | 2016-08-31 16:55 | HHI.PR ---
Subjective Remarks Slight increase in BPs off Amlodipine. She may do better to have a more mild treatment rather than resuming amlodipine. Lisinopril resumed. Pending repeat orthostatic will hopefully show improvement, but she is to use the precautions we discussed with position changes. Medically stable. Hospitalist team will sign off for now. Objective Vitals Vital Signs Date Time Temp Pulse Resp B/P Pulse Ox O2 Delivery O2 Flow Rate FiO2 08/31/16 16:29 87 141/94 08/31/16 04:26 97.6 82 17 166/83 94 08/30/16 18:00 97.9 78 16 146/82 95 I/O 08/30/16 08/30/16 08/30/16 08/31/16 08/31/16 08/31/16 07:00 15:00 23:00 07:00 15:00 23:00 Intake Total 840 ml 360 ml Balance 840 ml 360 ml Intake Oral 840 ml 360 ml # Voids 2 3 A/P Problem List: (1) Schizophrenia, paranoid, chronic with acute exacerbation ICD Code: F20.0 Status: Acute (2) Fall ICD Code: W19.XXXA Status: Acute (3) Orthostatic hypotension ICD Code: I95.1 Status: Acute (4) HTN (hypertension) ICD Code: I10 Status: Acute Assessment and Plan Precautions with position changes Lisinopril 5mg daily El Mcginnis MD Aug 31, 2016 16:55
[2016-08-31] MEDS: QUEtiapine FUMARATE 300 MG TAB PO SCH (21:20)
[2016-09-01 05:13] VITALS: BP 112/78; PULSE 88; RESP 18; TEMP 97.8; O2SAT 96
[2016-09-01] MEDS: GEMFIBROZIL 600 MG TAB PO SCH ×2 (07:00→17:05)
[2016-09-01] MEDS: NICOTINE 21 MG/24 HR PATCH T-DERMAL SCH (09:00)
[2016-09-01] MEDS: INSULIN DETEMIR 100 UNITS/ML VIAL SQ SCH (09:00)
[2016-09-01] MEDS: REMOVE OLD PATCH T-DERMAL SCH (09:00)
[2016-09-01 09:07] VITALS: BP 140/76
[2016-09-01] MEDS: MELOXICAM 15 MG TAB PO SCH (09:08)
[2016-09-01] MEDS: metFORMIN HCL 500 MG TAB PO SCH ×2 (09:08→17:19)
[2016-09-01] MEDS: LISINOPRIL 5 MG TAB PO SCH (09:08)
[2016-09-01] MEDS: GABAPENTIN 300 MG CAP PO SCH ×3 (09:09→17:19)
[2016-09-01] MEDS: DIVALPROEX SODIUM E.R. 500 MG TAB PO SCH ×4 (09:09→20:12)
[2016-09-01] MEDS: DOCUSATE SODIUM 100 MG CAP PO SCH ×2 (09:09→20:11)
[2016-09-01] MEDS: FERROUS SULFATE 325 MG (65 MG ELEMENTAL IRON) TAB PO SCH ×2 (09:09→20:12)
[2016-09-01] MEDS: PANTOPRAZOLE SOD 20 MG DELAYED RELEASE TAB PO SCH (09:10)
[2016-09-01] MEDS: ACETAMINOPHEN 325 MG TAB PO PRN (09:10)
[2016-09-01] MEDS: MULTIVITAMIN TAB PO SCH (09:10)
[2016-09-01] MEDS: LEVOFLOXACIN 750 MG TAB PO SCH (13:14)
--- NOTE | 2016-09-01 14:23 | HHI.PYPN ---
Subjective Remarks Patient seen for psychiatric reevaluation today, patient is preoccupied about a fan hanging in the building across the street, she says that she is afraid that the fact is going to fall. She is easily redirected, reports good mood, good appetite, fair sleep at night, good level of energy, she denies suicidal or homicidal ideation, she denies visual and auditory hallucinations. As per nurse in charge, patient has been a little bit paranoid, internally preoccupied disorganized at times, but easily redirectable. Collateral information from Mercedes, lining caser in living facility, was obtained. She says that one of the problem is the residence is that when the patient is very paranoid she refuses to get her insulin from the nurse. She says that is her fear is to discharge before being 100% stabilized. Review of Systems Constitutional: DENIES: Diaphoretic episodes, Fatigue, Fever, Weight gain, Weight loss, Chills, Dizziness, Change in appetite, Night Sweats Endocrine: DENIES: Abnorml menstrual pattern, Heat/cold intolerance, Polydipsia , Polyuria, Polyphagia Eyes: DENIES: Blurred vision, Diplopia, Eye inflammation, Eye pain, Vision loss , Photosensitivity, Double Vision Ears, nose, mouth, throat: DENIES: Tinnitus, Hearing loss, Vertigo, Nasal discharge, Oral lesions, Throat pain, Hoarseness, Ear Pain, Running Nose, Epistaxis, Sinus Pain, Toothache, Odynophagia Gastrointestinal: DENIES: Abdominal pain, Black stools, Bloody stools, Constipation, Diarrhea, Nausea, Vomiting, Difficulty Swallowing, Anorexia Genitourinary: DENIES: Abnormal vaginal bleeding, Dysmenorrhea, Dyspareunia, Sexual dysfunction, Urinary frequency, Urinary incontinence, Urgency, Hematuria , Dysuria, Nocturia, Vaginal discharge Musculoskeletal: DENIES: Joint pain, Muscle aches, Stiffness, Joint Swelling, Back pain, Neck pain Integumentary: DENIES: Abnormal pigmentation, Pruritus, Rash, Nail changes, Breast masses, Breast skin changes, Nipple discharge Hematologic/lymphatic: DENIES: Bruising, Lymphadenopathy Immunologic/allergic: DENIES: Eczema, Urticaria Neurologic: DENIES: Abnormal gait, Headache, Localized weakness, Paresthesias, Seizures, Speech Problems, Tremor, Poor Balance Psychiatric: DENIES: Anxiety, Confusion, Mood changes, Depression, Hallucinations, Agitation, Suicidal Ideation, Homicidal Ideation, Delusions Objective Alert: Yes [place]: Person, Place Mood: Anxious Affect: Labile (mild) Memory Intact: Comment (no formally assessed) Hallucinations: Other (she denies) Delusions: Yes Delusion Type: Paranoid, Other Suicidal: Ideation (she denies) Homicidal: Ideation (she denies) Insight/Judgment poor Vitals/IOs Vital Signs Date Time Temp Pulse Resp B/P Pulse Ox O2 Delivery O2 Flow Rate FiO2 09/01/16 09:07 140/76 09/01/16 05:13 97.8 88 18 96 Intake and Output 08/31/16 08/31/16 09/01/16 08:00 16:00 00:00 Intake Total 360 ml 240 ml Balance 360 ml 240 ml Assessment & Plan Problem List: (1) Schizophrenia, paranoid, chronic with acute exacerbation Assessment & Plan: Patient has showed low response to current psychotropic regimen, she continues to be paranoid, disorganized. Will increase Seroquel to 400 mg at night. ICD Code: F20.0 Assessment & Plan Estimated LOS: days Justification for Cont. Inpt. Patient continues to be disorganized, impaired contact with reality. Oswald Flood MD Sep 01, 2016 14:23
[2016-09-01 18:05] VITALS: BP 107/71; PULSE 86; TEMP 98.4; O2SAT 95
[2016-09-01] MEDS: QUEtiapine FUMARATE 200 MG TAB PO SCH (20:12)
[2016-09-02 05:35] VITALS: BP 102/66; PULSE 85; RESP 15; TEMP 97.6; O2SAT 93
[2016-09-02] MEDS: GEMFIBROZIL 600 MG TAB PO SCH ×2 (06:24→16:00)
[2016-09-02] MEDS: PANTOPRAZOLE SOD 20 MG DELAYED RELEASE TAB PO SCH (08:07)
[2016-09-02] MEDS: FERROUS SULFATE 325 MG (65 MG ELEMENTAL IRON) TAB PO SCH ×2 (08:07→20:21)
[2016-09-02] MEDS: metFORMIN HCL 500 MG TAB PO SCH ×2 (08:07→17:09)
[2016-09-02] MEDS: DOCUSATE SODIUM 100 MG CAP PO SCH ×2 (08:07→20:21)
[2016-09-02] MEDS: MULTIVITAMIN TAB PO SCH (08:07)
[2016-09-02] MEDS: GABAPENTIN 300 MG CAP PO SCH ×3 (08:07→17:09)
[2016-09-02] MEDS: DIVALPROEX SODIUM E.R. 500 MG TAB PO SCH (08:08)
[2016-09-02] MEDS: MELOXICAM 15 MG TAB PO SCH (08:08)
[2016-09-02] MEDS: LISINOPRIL 5 MG TAB PO SCH (08:08)
[2016-09-02] MEDS: INSULIN DETEMIR 100 UNITS/ML VIAL SQ SCH (08:10)
[2016-09-02] MEDS: NICOTINE 21 MG/24 HR PATCH T-DERMAL SCH (09:00)
[2016-09-02] MEDS: REMOVE OLD PATCH T-DERMAL SCH (09:00)
--- NOTE | 2016-09-02 09:57 | HHI.PYPN ---
Subjective Remarks Patient was here for psychiatric reevaluation today, patient is very irritable, verbally hostile, paranoid he gains a staff in the unit. As per nurses last night she became very verbally abusive and agitated, she could be verbally de- escalated, but took long time. She denies SI/HI/VAH. Review of Systems Other No somatic complain Objective Alert: Yes [place]: Person, Place Mood: Anxious Affect: Labile (mild) Memory Intact: Comment (no formally assessed) Hallucinations: Other (she denies) Delusions: Yes Delusion Type: Paranoid, Other Suicidal: Ideation (she denies) Homicidal: Ideation (she denies) Insight/Judgment poor Vitals/IOs Vital Signs Date Time Temp Pulse Resp B/P Pulse Ox O2 Delivery O2 Flow Rate FiO2 09/02/16 05:35 97.6 85 15 102/66 93 Intake and Output 09/01/16 09/01/16 09/02/16 08:00 16:00 00:00 Intake Total 360 ml 240 ml 800 ml Balance 360 ml 240 ml 800 ml Assessment & Plan Problem List: (1) Schizophrenia, paranoid, chronic with acute exacerbation Assessment & Plan: Will increase Depakote to 750 milligrams twice a day. ICD Code: F20.0 Assessment & Plan Estimated LOS: days Justification for Cont. Inpt. Patient continues to show acute paranoid, manic like symptoms, with an increase possibility to decompensate out of the psychiatric unit. Oswald Flood MD Sep 02, 2016 09:57
[2016-09-02] MEDS: DIVALPROEX SODIUM E.R. 250 MG TAB PO SCH ×3 (12:45→20:22)
[2016-09-02] MEDS: LEVOFLOXACIN 750 MG TAB PO SCH (12:45)
[2016-09-02] MEDS: QUEtiapine FUMARATE 200 MG TAB PO SCH (20:21)
[2016-09-02 20:33] VITALS: BP 123/68; PULSE 91; RESP 16; TEMP 97.8; O2SAT 93
[2016-09-03 05:22] VITALS: BP 113/75; PULSE 86; RESP 16; TEMP 97.5; O2SAT 95
[2016-09-03] MEDS: ACETAMINOPHEN 325 MG TAB PO PRN ×2 (05:26→08:11)
[2016-09-03] MEDS: GEMFIBROZIL 600 MG TAB PO SCH (05:26)
[2016-09-03] MEDS: DIVALPROEX SODIUM E.R. 250 MG TAB PO SCH ×2 (08:13→12:07)
[2016-09-03] MEDS: GABAPENTIN 300 MG CAP PO SCH ×2 (08:13→12:07)
[2016-09-03] MEDS: metFORMIN HCL 500 MG TAB PO SCH (08:13)
[2016-09-03] MEDS: PANTOPRAZOLE SOD 20 MG DELAYED RELEASE TAB PO SCH (08:13)
[2016-09-03] MEDS: LISINOPRIL 5 MG TAB PO SCH (08:13)
[2016-09-03] MEDS: MULTIVITAMIN TAB PO SCH (08:13)
[2016-09-03] MEDS: FERROUS SULFATE 325 MG (65 MG ELEMENTAL IRON) TAB PO SCH (08:13)
[2016-09-03] MEDS: MELOXICAM 15 MG TAB PO SCH (08:13)
[2016-09-03] MEDS: DOCUSATE SODIUM 100 MG CAP PO SCH (08:13)
[2016-09-03] MEDS: INSULIN DETEMIR 100 UNITS/ML VIAL SQ SCH (08:15)
[2016-09-03] MEDS: REMOVE OLD PATCH T-DERMAL SCH (09:00)
[2016-09-03] MEDS: NICOTINE 21 MG/24 HR PATCH T-DERMAL SCH (09:00)
[2016-09-03] MEDS: LEVOFLOXACIN 750 MG TAB PO SCH (11:00)
[2016-09-03] MEDS ORDERED: DIVA250ER PO (11:27)
[2016-09-03] MEDS ORDERED: LEVEMIR SQ (11:27)
[2016-09-03] MEDS ORDERED: FLUP10TA PO (11:27)
[2016-09-03] MEDS ORDERED: LISI-519 PO (11:27)
[2016-09-03] MEDS ORDERED: QUET1TAB9 PO (11:27)
[2016-09-03] MEDS ORDERED: HYDR50CA PO (11:27)
[2016-09-03] MEDS ORDERED: NEUR300C PO (11:27)
[2016-09-03] MEDS ORDERED: MELO-1 PO (11:27)
[2016-09-03] MEDS ORDERED: METF500 PO (11:27)
--- NOTE | 2016-09-03 11:37 | HHI.DS ---
Psychiatry Discharge Summary Inpatient Psychiatric care?: Yes Advance Directive: No Reason Not Provided: Due to Patient Condition Mental Health AdvanceDirective: No Health Care Proxy: No Admission Admission Date Aug 25, 2016 at 12:45 Admission Diagnosis: (1) Schizophrenia, paranoid, chronic with acute exacerbation ICD Code: F20.0 Brief History 08/24/16: The patient is a 56-year-old woman, domiciled in a [facility], single, unemployed, supported by [facility], with extensive psychiatric history of paranoid schizophrenia, multiple psychiatric hospitalizations, receiving outpatient care by visiting psychiatrist/nurse practitioner Jamin Figueroa in her [facility], she has been stable on Depakote 500 mg twice a day, fluphenazine and milligram twice a day, Artane 5 mg twice a day , her last psychiatric hospitalization was here at [facility], October 2015, she was under the care of Dr. Rendon, documentation was reviewed, she doesn't have any previous suicidal attempts, medical history of diabetes mellitus or hypertension, who was brought to the hospital due to altered mental status and agitation, she was found to have significant UTI and sepsis with Escherichia coli. Patient was consulted to psychiatry due to disorganized behavior, paranoia and agitation. On psychiatric evaluation today patient is found in her bed, she is irritable, superficially cooperative. When I presented myself as a psychiatrist, she became verbally hostile stating that I am trying to poison her with the psychiatric medication she is taking. She says that the reason she is here in the hospital is because her psychiatrist in [facility] has been prescribing her with medication that are poisoning her body. Patient says that she has been trying to leave this place, "because I see people coming and going, they are never the same people and I don't trust them". Patient reports angry mood, increased anxiety, poor sleep, but denies depressive symptoms, denies anhedonia, denies hopelessness, denies helplessness, denies suicidal and homicidal ideation. Patient denies visual and auditory hallucinations at this moment. Patient is fully oriented 3, without any attention deficit, without fluctuation of consciousness and not gross cognitive impairment observed. However patient is to oppositional and resistant to the evaluation to perform a full cognitive evaluation. At times during the evaluation patient become disorganized making not much sense, but she is redirectable. Collateral information from her psychiatrist nurse practitioner, Jamin Figueroa, was obtained, he says that the patient was at baseline last time he saw her last week. Patient is usually kind of disorganized and tangential, but never paranoid. She is usually compliant to current psychotropic regimen, in which she has been for years, with good response and not significant side effects. He recommends a psychiatric hospitalization for adjustment of psychotropics and stabilization paranoia. Patient denies the use of illicit drugs and alcohol. 08/25/2016: Patient seen for psychiatric reevaluation today, patient is found lying in her bed, she is very irritable, guarded and paranoid. She says that is for psychiatrists's fault she is here in the hospital and the reason she became unconscious "is due to the poison that you are giving me". Patient seems to be upset, but not agitated or hostile. At times becomes disorganized, but redirectable. She reports angry mood, but denies depressive symptoms such as hopelessness, helplessness, anhedonia, she denies suicidal and homicidal ideation, she denies visual and auditory hallucinations. Patient has been compliant with her medications, no aggressive behavior or agitation reported. 08/26/2016 patient seen today for psychiatric follow-up. She is found sitting in the floor. When asked why she sitting in the floor, her answer was that she was looking for something "but I don't know if acting what". Patient reports that she has been upset "these people are playing games with me", but she would not elaborate about this idea. Patient is very disorganized, tangential, but redirectable. She denies suicidal and homicidal ideation, she denies visual and auditory hallucinations. Even though patient is disorganized, seems to be paranoid towards staff, no agitation, hostility. Patient is oriented 3, compliant with medications. 08/26/16 Above notes dictated by Dr. Rossi reviewed and agreed with. Patient is a 56 -year-old female admitted to Dr. Rossi service under the [place] act. Patient seen by me with RN patient confused disorganized irritable appears to be responding to internal stimuli. Patient showing no insight into her problems. Dr. Rossi has signed first opinion petition supporting [place] act. I agree. Patient meets criteria for involuntary psychiatric hospitalization under the [place] act. Thus I will cosign second opinion petition supporting [place] act Tobacco Use In Past 30 Days: 5 or More Cigarettes/Day Alcohol Use: Never Hospital Course Patient was transferred to medical floor to med psych unit. She was initially admitted in the medical floor due to significant UTI and delirium. Appropriate safety measures were immediately taken, patient was placed in close observation. Psychosocial and psychiatric assessment were performed. Patient was immediately restarted on psychotropics, individual and group psychotherapy. On her initial presentation patient was disorganized and paranoid. She was started in Seroquel, that was titrated up as patient could tolerate and I was needed. Patient with the days showed a good response to psychotropic regimen and psychotherapy. During her hospitalization patient has periodic psychomotor agitation and hostility. She was also paranoid again staff. But she was usually redirectable and with the days this kind of behavior decreased. Meeting with medical administrator of [facility] was performed, and this meeting they explained that they did not have the capacity to take care of the medical situation of the patient. They would not have an appropriate staff to do with her daily insulin needs. For this reason discharge plan team decided to discharge patient with her father to his house. At the moment of the evaluation the patient was at baseline, at times disorganized and paranoid, but verbally redirectable, compliant with medications, with a positive response, and no significant side effects.. Results Blood Pressure 113 / 75 Vital Signs Date Time Temp Pulse Resp B/P Pulse Ox O2 Delivery O2 Flow Rate FiO2 09/03/16 05:22 97.5 86 16 113/75 95 Reviewed Summary of Procedures No procedures done Pending results at discharge: No Medications # of Antipsychotic meds at D/C: 2 Appropriate >1 Antipsych meds?: 2 Approp Antipsych med options 1 - Minimum of three failed multiple trials of monotherapy. 2 - Documented plan to taper to monotherapy due to previous use of multiple meds OR cross-taper in progress at D/C. 3 - Documentation of augmentation of Clozapine. 4 - Justification other than those listed in allowable values 1-3, document here : Discharge Discharge Date: Sep 03, 2016 Discharge Diagnosis: (1) Schizophrenia, paranoid, chronic with acute exacerbation Diagnosis: Principal ICD Code: F20.0 Mental Status Exam at Disch The patient is a woman, who looks older for her stated age, on regular close, for hygiene, irritable, but cooperative. Her speech is loud and at times incoherent, her mood is elevated, her affect is irritable. Her thought processes mostly logical and linear, with moment of disorganization. Thought content is devoid of suicidal and homicidal ideation, visual and auditory hallucinations, with some paranoid thoughts. Her insight, impulse control and judgment is fair. Her cognition seems to be intact. Pt Condition on Discharge: Stable Discharge Disposition: Discharge Home Discharge Instructions Diet Instructions: As Tolerated, No Restrictions, Diabetic Diet Activities you can perform: Weight Bearing as Maurice Scheduled Appointment: Discharge Time > 30 minutes Discharge/Advance Care Plan Health Problems: (1) Schizophrenia, paranoid, chronic with acute exacerbation Goals to promote your health * To prevent worsening of your condition and complications * To maintain your health at the optimal level Directions to meet your goals Take your medications as prescribed Follow your dietary instruction Follow activity as directed Keep your appointments as scheduled Take your immunizations and boosters as scheduled If your symptoms worsen call your PCP, if no PCP go to Urgent Care Center or Emergency Room For 24/ questions related to your inpatient stay or results of tests pending at discharge, please contact Dr. Oswald Flood at Smoking is Dangerous to Your Health. Avoid second hand smoking Oswald Flood MD Sep 03, 2016 11:37
== END 2016-09-03 13:30 | disposition home or self-care (01) | DRG 885 ==
LOC: H4EA 12:45
PROVIDERS: ADMIT Psychiatry & Neurology Psychiatry; ATTEND Psychiatry & Neurology Psychiatry
DX: F20.0 Paranoid schizophrenia (principal); N39.0 Urinary tract infection, site not specified; F17.210 Nicotine dependence, cigarettes, uncomplicated
CPT/HCPCS: 80164; 82948; J2060